=== PATIENT | female | born 1955 | race Caucasian/White ===

== ENCOUNTER 2019-12-19 23:37 | Observation (INO) ==
--- NOTE | 2019-12-20 00:07 | Emergency Department Note ---
History of Present Illness General Chief complaint: Cardiac Assessment Stated complaint: HEART RACING,NAUSEA,PAIN IN RT JAW,FAINT FEELING Time Seen by Provider: 12/19/19 23:46 Source: patient Mode of arrival: ambulatory Limitations: no limitations History of Present Illness Provider complaint: chest pain, palpitations Onset (ago): week(s) Location: chest Radiation: neck Severity: moderate Pain Consistency: + intermittent Quality: + aching Relieved By: + none Exacerbated By: + none Associated symptoms: + chest pain; no fever/chills, no nausea/vomiting, no shortness of breath and no syncope Treatments prior to arrival: none This is a 64-year-old female who presents the emergency department with complaints of intermittent left chest pain over the last 3 weeks as well as palpitations. She states tonight she developed palpitations, accompanying left-sided chest pain that radiated to the left neck and left jaw, felt lightheaded/dizzy, and felt slightly nauseated. Patient denies any common cough or shortness of breath. Patient denies any recent lower extremity edema. Patient states there have been no recent exacerbating or alleviating factors to the intermittent left chest pain and palpitations. Patient denies any recent cough or cold. Patient denies any recent change in her medications or diet. No change in her daily use of caffeine, no recent use of alcohol. Patient denies any known sick contacts. Patient does have a significant family history of heart disease, including her mother who at age 45 from a heart attack. Patient states approximately 7 to 8 years ago she did undergo a cardiac cath, however has not seen cardiology or needed to have any other cardiac testing since then. Pt seen during a time of high acuity and national emergency pandemic while wearing PPE. Home Medications Home Medications Medication Instructions Recorded Confirmed Type aspirin 81 mg PO DAILY 12/20/19 12/20/19 History atorvastatin 20 mg PO DAILY 12/20/19 12/20/19 History cholecalciferol (vitamin D3) 25 mcg PO DAILY 12/20/19 12/20/19 History [Vitamin D3] irbesartan 75 mg PO DAILY 12/20/19 12/20/19 History levothyroxine 75 mcg PO DAILY 12/20/19 12/20/19 History kz-3-jfp-epa-fish oil-vit D3 [Fish 1 cap PO DAILY PRN 10/25/20 10/25/20 History Oil-Vit D3] omeprazole 20 mg PO DAILY 12/20/19 12/20/19 History Allergies Allergy/AdvReac Type Severity Reaction Status Date / Time isopropamide Allergy Intermediate SWELLING Verified 12/20/19 00:33 prochlorperazine Allergy Intermediate SWELLING Verified 12/20/19 00:33 POP Inhibitors AdvReac Intermediate COUGH Verified 12/20/19 00:33 Past Med/Surg History Medical History Hypertension Thyroid dysfunction Social History Smoking Status: Never smoker Hx Alcohol Use: Yes Alcohol type: wine Hx Substance Use: No Preferred Language: Albanian Communication Ability: Effective 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 and A total of 10 systems reviewed and were otherwise negative Physical Exam Vital Signs Vital Signs - 24 hr 12/20/19 01:00 12/20/19 01:30 12/20/19 02:00 Temperature Temperature Source Pulse Rate 85 81 90 Pulse Rate [Right Finger] Pulse Rhythm [Right Finger] Pulse Strength [Right Finger] Respiratory Rate 16 16 16 Respiratory Effort / Characteristics Respiratory Depth Respiratory Pattern Blood Pressure 158/93 H 136/86 139/83 Blood Pressure [Left Arm] Blood Pressure Mean 103 106 94 Blood Pressure Mean [Left Arm] Blood Pressure Position [Left Arm] Pulse Oximetry 98 96 98 Oxygen Delivery Method 12/20/19 02:45 12/20/19 02:48 12/20/19 07:11 Temperature 36.8 C Temperature Source Oral Pulse Rate 92 H 69 Pulse Rate [Right Finger] 82 Pulse Rhythm [Right Finger] Regular Pulse Strength [Right Finger] Normal Respiratory Rate 16 Respiratory Effort / Characteristics Non-Labored Respiratory Depth Normal Respiratory Pattern Regular Blood Pressure Blood Pressure [Left Arm] 152/83 H Blood Pressure Mean Blood Pressure Mean [Left Arm] 106 Blood Pressure Position [Left Arm] Sitting Pulse Oximetry 100 Oxygen Delivery Method Room Air 12/20/19 08:00 12/20/19 08:23 12/20/19 11:51 Temperature 36.9 C 37.0 C Temperature Source Oral Oral Pulse Rate Pulse Rate [Right Finger] 66 72 Pulse Rhythm [Right Finger] Pulse Strength [Right Finger] Respiratory Rate 18 18 Respiratory Effort / Characteristics Non-Labored Respiratory Depth Normal Respiratory Pattern Regular Blood Pressure Blood Pressure [Left Arm] 148/61 H 105/63 Blood Pressure Mean Blood Pressure Mean [Left Arm] 90 77 Blood Pressure Position [Left Arm] Pulse Oximetry 96 99 Oxygen Delivery Method Room Air GENERAL: alert, well appearing, well nourished, no distress, non-toxic EYE EXAM: normal conjunctiva, PERRL and EOM's grossly intact OROPHARYNX: no exudate, no erythema, lips, buccal mucosa, and tongue normal and mucous membranes are moist NECK: supple, no nuchal rigidity, no adenopathy, non-tender, no reproducible pain along the left neck or left jaw, no bruit LUNGS: Clear to auscultation. Normal chest wall mechanics, no w/r/r HEART: no murmurs, S1 normal and S2 normal, no reproducible chest wall tenderness ABDOMEN: abdomen soft, non-tender, normo-active bowel sounds, no masses, no rebound or guarding. BACK: Back is symmetrical on inspection and there is no deformity, no midline tenderness, no CVA tenderness. SKIN: no rashes and no bruising UPPER EXTREMITIES: upper extremities are grossly normal. FROM, nml pulses b/l. LOWER EXTREMITIES: No pitting edema. FROM, nml pulses b/l. NEURO EXAM: Normal sensorium, cranial nerves II-XII grossly intact, normal spe ech, no gross weakness of arms, no gross weakness of legs. Gross sensation intact. Course Course 0102: Patient updated on results. States pain is almost completely resolved now with application of Nitropaste. 0135: Dr. Myres will evaluate the patient. Administered Medications Acetaminophen (Acetaminophen 325 Mg Tab) 650 mg PO Q4H PRN PRN Reason: Pain or Fever Stop: 01/19/20 02:46 Last Admin: 12/20/19 21:32 Dose: 650 mg Documented by: [id number] Aspirin (Aspirin 81 Mg Ectab) 81 mg PO DAILY [facility] Stop: 01/19/20 08:59 Last Admin: 12/20/19 08:22 Dose: 81 mg Documented by: [id number] Atorvastatin Calcium (Atorvastatin 20 Mg Tab) 20 mg PO DAILY [facility] Stop: 01/19/20 08:59 Last Admin: 12/20/19 08:23 Dose: 20 mg Documented by: [id number] Enoxaparin Sodium (Enoxaparin Inj 40 Mg/0.4 Ml Syr) 40 mg SQ QAM [facility]ANN[facility] Stop: 01/19/20 08:59 Last Admin: 12/20/19 08:30 Dose: 40 mg Documented by: [id number] Levothyroxine Sodium (Levothyroxine Sodium 75 Mcg Tablet) 75 mcg PO DAILYBB SHANNEN Stop: 01/19/20 06:29 Last Admin: 12/20/19 05:52 Dose: 75 mcg Documented by: [id number] Metoprolol Succinate (Metoprolol Succ 25mg Ext Rel Tab) 12.5 mg PO QAM SHANNEN Stop: 01/19/20 10:59 Last Admin: 12/20/19 11:49 Dose: 12.5 mg Documented by: [id number] Pantoprazole Sodium (Pantoprazole 40 Mg Tab) 40 mg PO DAILY [facility] Stop: 01/19/20 08:59 Last Admin: 12/20/19 08:22 Dose: 40 mg Documented by: [id number] Vitamin D (Cholecalciferol 1,000 Units 25 Mcg Tab) 1,000 units PO DAILY [facility] Stop: 01/19/20 08:59 Last Admin: 12/20/19 08:22 Dose: 1,000 units Documented by: [id number] Discontinued Medications Magnesium Sulfate/Dextrose (Magnesium Sulfate / D5w) 1 gm in 100 mls @ 50 mls/hr IV ONE ONE Stop: 12/20/19 04:46 Last Infusion: 12/20/19 05:51 Dose: 0 mls/hr Documented by: [id number] Admin: 12/20/19 03:44 Dose: 50 mls/hr Documented by: [id number] Potassium Chloride 40 meq/ (Sodium Chloride) 1,020 mls @ 50 mls/hr IV .[id number] ONE Stop: 12/20/19 23:10 Last Infusion: 12/20/19 23:41 Dose: 0 mls/hr Documented by: [id number] Admin: 12/20/19 03:43 Dose: 50 mls/hr Documented by: [id number] Ioversol (Optiray 320 125ml) 120 ml IV ONCE ONE Stop: 12/20/19 02:39 Last Admin: 12/20/19 02:38 Dose: 120 ml Documented by: [id number] Irbesartan (Irbesartan 75 Mg Tab) 75 mg PO NOW STA Stop: 12/20/19 01:08 Last Admin: 12/20/19 01:40 Dose: 75 mg Documented by: [id number] Nitroglycerin (Nitroglycerin 2% Ointment 30gm Tube) 1 inch EXT NOW STA Stop: 12/20/19 00:22 Last Admin: 12/20/19 00:32 Dose: 1 inch Documented by: [id number] Potassium Chloride (Potassium Chloride 20 Meq Tabcr) 40 meq PO NOW STA Stop: 12/20/19 02:48 Last Admin: 12/20/19 03:44 Dose: 40 meq Documented by: [id number] Medical Decision Making Differential Diagnosis Differential diagnoses includes but is not limited to acute coronary syndrome, myocardial infarction, pericarditis, pulmonary embolus, aortic dissection, pneumonia, pneumothorax, musculoskeletal, shingles, esophageal. Medical Records Attestation: I reviewed the patient's medical records. Home Medications Current Medication List: was personally reviewed by me Laboratory Data Attestation: I reviewed the patient's lab results. Result diagrams: 12/20/19 05:24 12/20/19 05:24 Lab Results 12/19/19 12/19/19 12/19/19 Range/Units 23:50 23:50 23:50 WBC 7.38 (4.8-10.8) K/uL RBC 3.99 L (4.2-5.4) M/uL Hgb 12.2 (12.0-16.0) g/dL Hct 36.7 L (37-47) % MCV 92.0 (80-100) fL MCH 30.6 (25-34) pg MCHC 33.2 (32-36) g/dL RDW Std Deviation 44.1 (36.4-46.3) fL RDW Coeff of Mariela 13.1 (11.5-14.5) % Plt Count 287 (130-400) K/uL MPV 9.8 (7.4-10.4) fL Immature Gran % (Auto) 0.1 % Neut % (Auto) 42.6 % Lymph % (Auto) 45.8 % [place] % (Auto) 8.9 % Eos % (Auto) 2.3 % Baso % (Auto) 0.3 % Neut # (Auto) 3.14 (1.4-6.5) K/uL Lymph # (Auto) 3.38 (1.2-3.4) K/uL [place] # (Auto) 0.66 H (0.11-0.59) K/uL Eos # (Auto) 0.17 (0-0.5) K/uL Baso # (Auto) 0.02 (0-0.2) K/uL Immature Gran # (Auto) 0.01 (0.00-0.02) K/uL PT 10.3 (9.0-12.0) Seconds INR 1.0 (0.9-1.1) APTT (21.0-31.0) Seconds PTT Ratio D-Dimer 340 (0-500) ug/L FEU Sodium 137 (136-145) mmol/L Potassium 3.5 (3.5-5.1) mmol/L Chloride 102 (98-107) mmol/L Carbon Dioxide 30 (21-32) mmol/L Anion Gap 5.0 (3-11) BUN 16 (7-18) mg/dl Creatinine 0.95 (0.6-1.2) mg/dl Est Cr Clr Drug Dosing 56.1 ml/min Est GFR ( Amer) 72.3 Est GFR (Non-Af Amer) 62.4 BUN/Creatinine Ratio 17.0 (10-20) Glucose 99 (70-99) mg/dl Calcium 9.0 (8.5-10.1) mg/dl Magnesium 1.8 (1.8-2.4) mg/dl Total Bilirubin 0.4 (0.2-1) mg/dl AST 15 (15-37) U/L ALT 28 (12-78) U/L Alkaline Phosphatase 76 (45-117) U/L Troponin I < 0.015 (0-0.045) ng/ml NT-Pro-B Natriuret Pep 39 (0-900) pg/ml Total Protein 7.6 (6.4-8.2) gm/dl Albumin 4.2 (3.4-5.0) gm/dl Globulin 3.4 (2.5-4.0) gm/dl Albumin/Globulin Ratio 1.2 (0.9-2) Triglycerides (0-150) mg/dl Cholesterol (0-200) mg/dl LDL Cholesterol, Calc mg/dl VLDL Cholesterol, Calc mg/dl HDL Cholesterol mg/dl Cholesterol/HDL Ratio Lipase 226 (73-393) U/L TSH 3.060 (0.300-4.500) uIu/ml Lyme Disease IgG Ab (Negative) Lyme Disease IgM Ab (Negative) 12/19/19 12/20/19 12/20/19 Range/Units 23:50 05:24 05:24 WBC 6.46 (4.8-10.8) K/uL RBC 3.77 L (4.2-5.4) M/uL Hgb 11.4 L (12.0-16.0) g/dL Hct 35.1 L (37-47) % MCV 93.1 (80-100) fL MCH 30.2 (25-34) pg MCHC 32.5 (32-36) g/dL RDW Std Deviation 44.5 (36.4-46.3) fL RDW Coeff of Mariela 13.1 (11.5-14.5) % Plt Count 262 (130-400) K/uL MPV 10.0 (7.4-10.4) fL Immature Gran % (Auto) 0.2 % Neut % (Auto) 59.3 % Lymph % (Auto) 32.0 % [place] % (Auto) 7.0 % Eos % (Auto) 1.2 % Baso % (Auto) 0.3 % Neut # (Auto) 3.83 (1.4-6.5) K/uL Lymph # (Auto) 2.07 (1.2-3.4) K/uL [place] # (Auto) 0.45 (0.11-0.59) K/uL Eos # (Auto) 0.08 (0-0.5) K/uL Baso # (Auto) 0.02 (0-0.2) K/uL Immature Gran # (Auto) 0.01 (0.00-0.02) K/uL PT (9.0-12.0) Seconds INR (0.9-1.1) APTT 31.7 H (21.0-31.0) Seconds PTT Ratio 1.1 D-Dimer (0-500) ug/L FEU Sodium (136-145) mmol/L Potassium (3.5-5.1) mmol/L Chloride (98-107) mmol/L Carbon Dioxide (21-32) mmol/L Anion Gap (3-11) BUN (7-18) mg/dl Creatinine (0.6-1.2) mg/dl Est Cr Clr Drug Dosing ml/min Est GFR ( Amer) Est GFR (Non-Af Amer) BUN/Creatinine Ratio (10-20) Glucose (70-99) mg/dl Calcium (8.5-10.1) mg/dl Magnesium (1.8-2.4) mg/dl Total Bilirubin (0.2-1) mg/dl AST (15-37) U/L ALT (12-78) U/L Alkaline Phosphatase (45-117) U/L Troponin I (0-0.045) ng/ml NT-Pro-B Natriuret Pep (0-900) pg/ml Total Protein (6.4-8.2) gm/dl Albumin (3.4-5.0) gm/dl Globulin (2.5-4.0) gm/dl Albumin/Globulin Ratio (0.9-2) Triglycerides (0-150) mg/dl Cholesterol (0-200) mg/dl LDL Cholesterol, Calc mg/dl VLDL Cholesterol, Calc mg/dl HDL Cholesterol mg/dl Cholesterol/HDL Ratio Lipase (73-393) U/L TSH (0.300-4.500) uIu/ml Lyme Disease IgG Ab Negative (Negative) Lyme Disease IgM Ab Negative (Negative) 12/20/19 Range/Units 05:24 WBC (4.8-10.8) K/uL RBC (4.2-5.4) M/uL Hgb (12.0-16.0) g/dL Hct (37-47) % MCV (80-100) fL MCH (25-34) pg MCHC (32-36) g/dL RDW Std Deviation (36.4-46.3) fL RDW Coeff of Mariela (11.5-14.5) % Plt Count (130-400) K/uL MPV (7.4-10.4) fL Immature Gran % (Auto) % Neut % (Auto) % Lymph % (Auto) % [place] % (Auto) % Eos % (Auto) % Baso % (Auto) % Neut # (Auto) (1.4-6.5) K/uL Lymph # (Auto) (1.2-3.4) K/uL [place] # (Auto) (0.11-0.59) K/uL Eos # (Auto) (0-0.5) K/uL Baso # (Auto) (0-0.2) K/uL Immature Gran # (Auto) (0.00-0.02) K/uL PT (9.0-12.0) Seconds INR (0.9-1.1) APTT (21.0-31.0) Seconds PTT Ratio D-Dimer (0-500) ug/L FEU Sodium 136 (136-145) mmol/L Potassium 3.8 (3.5-5.1) mmol/L Chloride 104 (98-107) mmol/L Carbon Dioxide 29 (21-32) mmol/L Anion Gap 3.0 (3-11) BUN 14 (7-18) mg/dl Creatinine 0.82 (0.6-1.2) mg/dl Est Cr Clr Drug Dosing 68.2 ml/min Est GFR ( Amer) 86.4 Est GFR (Non-Af Amer) 74.6 BUN/Creatinine Ratio 17.2 (10-20) Glucose 131 H (70-99) mg/dl Calcium 8.7 (8.5-10.1) mg/dl Magnesium (1.8-2.4) mg/dl Total Bilirubin (0.2-1) mg/dl AST (15-37) U/L ALT (12-78) U/L Alkaline Phosphatase (45-117) U/L Troponin I < 0.015 (0-0.045) ng/ml NT-Pro-B Natriuret Pep (0-900) pg/ml Total Protein (6.4-8.2) gm/dl Albumin (3.4-5.0) gm/dl Globulin (2.5-4.0) gm/dl Albumin/Globulin Ratio (0.9-2) Triglycerides 146 (0-150) mg/dl Cholesterol 177 (0-200) mg/dl LDL Cholesterol, Calc 96 mg/dl VLDL Cholesterol, Calc 29 mg/dl HDL Cholesterol 52 mg/dl Cholesterol/HDL Ratio 3 Lipase (73-393) U/L TSH (0.300-4.500) uIu/ml Lyme Disease IgG Ab (Negative) Lyme Disease IgM Ab (Negative) Imaging Data My Impression: X-ray: I interpreted the following studies. Chest: A single view study of the chest was reviewed and was negative for cardiomegaly, focal infiltrate, effusion, pulmonary edema, or wide mediastinum. ECG Data Attestation: I personally reviewed and interpreted this ECG as follows: Indication: + chest pain and + palpitations Rate (beats per minute): 100 Rhythm: + sinus tachycardia ECG Intervals/blocks: + Normal QRS and + Normal QT ECG [place]: + Normal ECG ST segments: + Normal ST segments Blood Pressure Blood Pressure Findings: Elevated blood pressure Blood Pressure Disposition: further management by hospitalist VERA Narrative Heart score 5 This is a 64-year-old female who presents here with a concerning story for evolving intermittent chest pain that now today included not only chest pain but pain into the neck and jaw. Patient with extensive and young onset family history of coronary artery disease including sudden in her mom at age 45 as well as siblings and other family members who have had young onset CAD but have since survived. Patient denied any recent change in diet or activity, no recent illness. Labs are drawn and sent as a precaution and were reassuring. EKG did not show any acutely concerning changes. Patient remained hemodynamically stable throughout. Patient did take her usual baby aspirin this morning, Nitropaste was applied here and patient did have improvement in her symptoms. D-dimer was negative, chest x-ray otherwise unremarkable. Heart scor e is elevated and because of this as well as concern for evolving angina, case discussed with hospitalist for additional evaluation and monitoring. Patient's blood pressure was markedly elevated initially, did improved after the Nitropaste, patient reports that is much higher than she typically states. It is unclear if there could be a component of hypertensive urgency. Symptoms not consistent based on patient's description and prior history of GERD or anxiety. I do not suspect dissection, cardiac tamponade, mediastinitis, perforation, GI bleed. No ectopy or dysrhythmia noted on telemetry despite patient's report of a sensitive racing/pounding of her heart. Patient did initially have sinus tachycardia although this improved spontaneously. An order was placed for continuous cardiac monitoring. The monitor shows a rate of _78 with _normal sinus rhythm. Impression & Plan Atypical chest pain, Hypertension, Stable angina, Intermittent palpitations Discharge Plan Visit Data Chief Complaint: Cardiac Assessment Stated Complaint: HEART RACING,NAUSEA,PAIN IN RT JAW,FAINT FEELING ED Provider: Chantale Sutton Discharge Problem: Atypical chest pain, Hypertension, Stable angina, Intermittent palpitations Patient Disposition: Admitted As Inpatient Discharge Instructions Interventions: ED Discharge Assessment Last Done: 12/20/19 02:16 Discharge Problem: Hypertension Qualifiers: Hypertension type: essential hypertension Qualified Code(s): I10 - Essential (primary) hypertension
[2019-12-20] MEDS ORDERED: NITROGLYCERIN 2% OINTMENT 30GM TUBE EXT STA (00:21)
[2019-12-20 00:33] LABS: Basophils # (auto) 0.02 K/uL (0-0.2); Basophils % (auto) 0.3 %; Eosinophils # (auto) 0.17 K/uL (0-0.5); Eosinophils % (auto) 2.3 %; Hematocrit (blood only) 36.7 % (37-47); Hemoglobin 12.2 g/dL (12.0-16.0); Immature Granulocytes # (auto) 0.01 K/uL (0.00-0.02); Immature Granulocytes % (auto) 0.1 %; Lymphocytes # (auto) 3.38 K/uL (1.2-3.4); Lymphocytes % (auto) 45.8 %; Mean Corpuscular Hemoglobin 30.6 pg (25-34); Mean Corpuscular Hgb Conc 33.2 g/dL (32-36); Mean Platelet Volume 9.8 fL (7.4-10.4); Monocytes # (auto) 0.66 K/uL (0.11-0.59); Monocytes % (auto) 8.9 %; Neutrophils # (auto) 3.14 K/uL (1.4-6.5); Neutrophils % (auto) 42.6 %; Platelet Count 287 K/uL (130-400); RDW Coefficient of Variation 13.1 % (11.5-14.5); RDW Standard Deviation 44.1 fL (36.4-46.3); Red Blood Count 3.99 M/uL (4.2-5.4); White Blood Count 7.38 K/uL (4.8-10.8)
[2019-12-20 00:41] LABS: Alanine Aminotransferase 28 U/L (12-78); Albumin Level 4.2 gm/dl (3.4-5.0); Aspartate Aminotransferase 15 U/L (15-37); Blood Urea Nitrogen 16 mg/dl (7-18); Carbon Dioxide 30 mmol/L (21-32); Chloride 102 mmol/L (98-107); Creatinine Clr Calc Pharmacy 56.1 ml/min; D Dimer 340 ug/L FEU (0-500); Est GFR (African American) 72.3; Est GFR (Non-African American) 62.4; Glucose 99 mg/dl (70-99); Lipase 226 U/L (73-393); Magnesium 1.8 mg/dl (1.8-2.4); Potassium 3.5 mmol/L (3.5-5.1); Prothrombin Time 10.3 Seconds (9.0-12.0); Sodium 137 mmol/L (136-145)
[2019-12-20 00:52] LABS: Albumin Globulin Ratio 1.2 (0.9-2); Alkaline Phosphatase 76 U/L (45-117); Bilirubin,Total 0.4 mg/dl (0.2-1); Globulin 3.4 gm/dl (2.5-4.0); NT Pro B Type Natriuretic Pept 39 pg/ml (0-900); Total Protein 7.6 gm/dl (6.4-8.2); Troponin I < 0.015 ng/ml (0-0.045)
[2019-12-20] MEDS ORDERED: IRBESARTAN 75 MG TAB PO STA (01:07)
[2019-12-20 01:19] LABS: Lyme Ab IgG w/WB Rflx Negative (Negative); Lyme Ab IgM w/WB Rflx Negative (Negative)
--- NOTE | 2019-12-20 01:38 | History & Physical Report ---
Date of Service December 20, 2019 Assessment & Plan (1) Chest pain: Associated with palpitations possibly from uncontrolled hypertension hyperlipidemia on statin Rx GERD, stable hypothyroidism, euthyroid as of today's TSH Malignant melanoma status post surgery OBS PCU Facilitate home ARB and titrate as needed TTE, Cardiology consult RE chest pain, uncontrolled hypertension DVT prophylaxis. Lovenox subcu Full code Text document was generated using [employer] voice recognition software. It may contain grammatical or spelling errors. Kindly contact undersigned for clarification of any documentation item in question. History of Present Illness Chief Complaint: Left-sided chest tightness, palpitations Primary Care Provider: Kitty Cano MD History obtained from patient, family, and records. Medical history significant for hypertension, hyperlipidemia, GERD, hypothyroidism, skin cancer status post surgery. 3 weeks ago patient noted transient left-sided upper chest tightness with some radiation to the neck with no other symptoms. Occurring about weekly. No consultations done. About 2 days ago patient noted recurrence of left upper chest tightness symptoms with neck radiation going to the left ear associated with palpitations, nausea, dizziness without headache, fast heartbeat. No cough, no S OB. No unusual stress at home other than caring for who was hospitalized a few months back for heart issues. Patient suspected her blood pressure might be high. Discomfort relief with ibuprofen intake. Patient brought to the ER by . Medical History as above Surgical History : Eye injections, oophorectomy, cataract surgery, skin cancer s urgery Family History : Diabetes, heart disease, hypertension Personal/Social history : Non-smoker, occasional EtOH intake, retired schoolteacher Allergies Allergy/AdvReac Type Severity Reaction Status Date / Time isopropamide Allergy Intermediate SWELLING Verified 12/20/19 00:33 prochlorperazine Allergy Intermediate SWELLING Verified 12/20/19 00:33 POP Inhibitors AdvReac Intermediate COUGH Verified 12/20/19 00:33 Home Medications Home Medications Medication Instructions Recorded Confirmed Type aspirin 81 mg PO DAILY 12/20/19 12/20/19 History atorvastatin 20 mg PO DAILY 12/20/19 12/20/19 History cholecalciferol (vitamin D3) 25 mcg PO DAILY 12/20/19 12/20/19 History [Vitamin D3] irbesartan 75 mg PO DAILY 12/20/19 12/20/19 History levothyroxine 75 mcg PO DAILY 12/20/19 12/20/19 History nu-0-rrf-epa-fish oil-vit D3 [Fish 1 cap PO DAILY PRN 12/20/19 12/20/19 History Oil-Vit D3] omeprazole 20 mg PO DAILY 12/20/19 12/20/19 History Past Med/Surg History Medical History Hypertension Thyroid dysfunction Social History Smoking Status: Never smoker Hx Alcohol Use: Yes Alcohol type: wine Hx Substance Use: No Preferred Language: Lithuanian Communication Ability: Effective Nursing Care Attendant Required: No Beliefs That Will Affect Care: None Current Living Situation: Spouse Other Information That Helps Us Care for You: No Feels Safe at Home: Yes Safety Concerns: Feels Safe At This Time Assistive Devices: Glasses Review of Systems Review of Systems: As per HPI, all 10 systems reviewed, all other ROS negative Physical Exam Physical Exam: GENERAL: Comfortable, pleasant, looks younger for stated age, no respiratory distress SKIN: Normal color, warm HEENT: [place] palpebral conjunctivae, no ptosis, dry buccal mucosa NECK : Supple, no tenderness CHEST : CTA, no tenderness HEART : RRR, no obvious murmurs ABDOMEN: Some distention, nontender EXTREMITIES : No LE swelling/tenderness, no other conspicuous deformities noted NEUROLOGIC : Coherent, no facial asymmetry, no other gross focality Results & Data Results & Data ([facility]) Vital Signs (Past 12 Hours) Vital Signs Temp Pulse BP Pulse Ox 12/19/19 23:45 36.7 C 98 H 185/92 H 100 Laboratory Results Laboratory Results WBC 7.38 K/uL (4.8-10.8) 12/19/19 23:50 RBC 3.99 M/uL (4.2-5.4) L 12/19/19 23:50 Hgb 12.2 g/dL (12.0-16.0) 12/19/19 23:50 Hct 36.7 % (37-47) L 12/19/19 23:50 MCV 92.0 fL (80-100) 12/19/19 23:50 MCH 30.6 pg (25-34) 12/19/19 23:50 MCHC 33.2 g/dL (32-36) 12/19/19 23:50 RDW Std Deviation 44.1 fL (36.4-46.3) 12/19/19 23:50 RDW Coeff of Mariela 13.1 % (11.5-14.5) 12/19/19 23:50 Plt Count 287 K/uL (130-400) 12/19/19 23:50 MPV 9.8 fL (7.4-10.4) 12/19/19 23:50 Immature Gran % (Auto) 0.1 % 12/19/19 23:50 Neut % (Auto) 42.6 % 12/19/19 23:50 Lymph % (Auto) 45.8 % 12/19/19 23:50 [place] % (Auto) 8.9 % 12/19/19 23:50 Eos % (Auto) 2.3 % 12/19/19 23:50 Baso % (Auto) 0.3 % 12/19/19 23:50 Neut # (Auto) 3.14 K/uL (1.4-6.5) 12/19/19 23:50 Lymph # (Auto) 3.38 K/uL (1.2-3.4) 12/19/19 23:50 [place] # (Auto) 0.66 K/uL (0.11-0.59) H 12/19/19 23:50 Eos # (Auto) 0.17 K/uL (0-0.5) 12/19/19 23:50 Baso # (Auto) 0.02 K/uL (0-0.2) 12/19/19 23:50 Immature Gran # (Auto) 0.01 K/uL (0.00-0.02) 12/19/19 23:50 PT 10.3 Seconds (9.0-12.0) 12/19/19 23:50 INR 1.0 (0.9-1.1) 12/19/19 23:50 D-Dimer 340 ug/L FEU (0-500) 12/19/19 23:50 Sodium 137 mmol/L (136-145) 12/19/19 23:50 Potassium 3.5 mmol/L (3.5-5.1) 12/19/19 23:50 Chloride 102 mmol/L (98-107) 12/19/19 23:50 Carbon Dioxide 30 mmol/L (21-32) 12/19/19 23:50 Anion Gap 5.0 (3-11) 12/19/19 23:50 BUN 16 mg/dl (7-18) 12/19/19 23:50 Creatinine 0.95 mg/dl (0.6-1.2) 12/19/19 23:50 Est Cr Clr Drug Dosing 56.1 ml/min 12/19/19 23:50 Est GFR ( Amer) 72.3 12/19/19 23:50 Est GFR (Non-Af Amer) 62.4 12/19/19 23:50 BUN/Creatinine Ratio 17.0 (-20) 12/19/19 23:50 Glucose 99 mg/dl (70-99) 12/19/19 23:50 Calcium 9.0 mg/dl (8.5-10.1) 12/19/19 23:50 Magnesium 1.8 mg/dl (1.8-2.4) 12/19/19 23:50 Total Bilirubin 0.4 mg/dl (0.2-1) 12/19/19 23:50 AST 15 U/L (15-37) 12/19/19 23:50 ALT 28 U/L (12-78) 12/19/19 23:50 Alkaline Phosphatase 76 U/L (45-117) 12/19/19 23:50 Troponin I < 0.015 ng/ml (0-0.045) 12/19/19 23:50 NT-Pro-B Natriuret Pep 39 pg/ml (0-900) 12/19/19 23:50 Total Protein 7.6 gm/dl (6.4-8.2) 12/19/19 23:50 Albumin 4.2 gm/dl (3.4-5.0) 12/19/19 23:50 Globulin 3.4 gm/dl (2.5-4.0) 12/19/19 23:50 Albumin/Globulin Ratio 1.2 (0.9-2) 12/19/19 23:50 Lipase 226 U/L (73-393) 12/19/19 23:50 TSH 3.060 uIu/ml (0.300-4.500) 12/19/19 23:50 Lyme Disease IgG Ab Negative (Negative) 12/19/19 23:50 Lyme Disease IgM Ab Negative (Negative) 12/19/19 23:50 Diagnostic Findings Chest x-ray as per my interpretation atelectasis, thin heart EKG as per my interpretation : Rate 100, NSR, LAD, LAFB, no ischemia, LAE CTA neck initial read: No evidence of high-grade stenosis or occlusion. Small right thyroid nodule.
[2019-12-20] MEDS ORDERED: OPTIRAY 320 125ml IV ONE (02:38)
[2019-12-20] MEDS ORDERED: NITROGLYCERIN SL 0.4 MG/TAB TAB SL PRN (02:47)
[2019-12-20] MEDS ORDERED: METOCLOPRAMIDE HCL INJ 5 MG/ML 2 ML VIAL IV PRN (02:47)
[2019-12-20] MEDS ORDERED: MoRPHine SULFATE 2 MG/ML CARP IV PRN (02:47)
[2019-12-20] MEDS ORDERED: MAGNESIUM SULFATE / D5W 1 GM/100 ML BAG IV ONE (02:47)
[2019-12-20] MEDS ORDERED: POTASSIUM CHLORIDE 40 MEQ in SODIUM CHLORIDE 0.9% 1000ML 1,000 ML IV ONE (02:47)
[2019-12-20] MEDS ORDERED: POTASSIUM CHLORIDE CRTAB 20 MEQ TABCR PO STA (02:47)
[2019-12-20] MEDS ORDERED: LORazepam 0.25 MG/0.5 ML VIAL IV PRN (02:47)
[2019-12-20] MEDS ORDERED: traMADol HCL 50 MG TABLET PO PRN (02:47)
[2019-12-20] MEDS: LEVOTHYROXINE SODIUM 75 MCG TABLET PO SCH (05:52)
[2019-12-20 06:14] LABS: Basophils # (auto) 0.02 K/uL (0-0.2); Basophils % (auto) 0.3 %; Eosinophils # (auto) 0.08 K/uL (0-0.5); Eosinophils % (auto) 1.2 %; Hematocrit (blood only) 35.1 % (37-47); Hemoglobin 11.4 g/dL (12.0-16.0); Immature Granulocytes # (auto) 0.01 K/uL (0.00-0.02); Immature Granulocytes % (auto) 0.2 %; Lymphocytes # (auto) 2.07 K/uL (1.2-3.4); Mean Corpuscular Hemoglobin 30.2 pg (25-34); Mean Corpuscular Hgb Conc 32.5 g/dL (32-36); Mean Corpuscular Volume 93.1 fL (80-100); Monocytes # (auto) 0.45 K/uL (0.11-0.59); Neutrophils # (auto) 3.83 K/uL (1.4-6.5); Neutrophils % (auto) 59.3 %; Platelet Count 262 K/uL (130-400); RDW Coefficient of Variation 13.1 % (11.5-14.5); RDW Standard Deviation 44.5 fL (36.4-46.3); Red Blood Count 3.77 M/uL (4.2-5.4); White Blood Count 6.46 K/uL (4.8-10.8)
[2019-12-20 06:34] LABS: Partial Thromboplastin Ratio 1.1; Partial Thromboplastin Time 31.7 Seconds (21.0-31.0)
[2019-12-20 06:48] LABS: BUN Creatinine Ratio 17.2 (10-20); Blood Urea Nitrogen 14 mg/dl (7-18); Calcium 8.7 mg/dl (8.5-10.1); Carbon Dioxide 29 mmol/L (21-32); Chloride 104 mmol/L (98-107); Cholesterol 177 mg/dl (0-200); Creatinine Clr Calc Pharmacy 68.2 ml/min; Est GFR (African American) 86.4; Est GFR (Non-African American) 74.6; Glucose 131 mg/dl (70-99); Potassium 3.8 mmol/L (3.5-5.1); Sodium 136 mmol/L (136-145); Triglycerides 146 mg/dl (0-150); VLDL Cholesterol 29 mg/dl
[2019-12-20 06:53] LABS: Chol HDL Ratio 3; HDL Cholesterol 52 mg/dl; LDL Cholesterol Calculated 96 mg/dl; Troponin I < 0.015 ng/ml (0-0.045)
[2019-12-20] MEDS: ASPIRIN 81 MG ECTAB PO SCH (08:22)
[2019-12-20] MEDS: PANTOprazole 40 MG TAB PO SCH (08:22)
[2019-12-20] MEDS: CHOLECALCIFEROL 1,000 UNITS 25 MCG TAB PO SCH (08:22)
[2019-12-20] MEDS: ATORVASTATIN 20 MG TAB PO SCH (08:23)
[2019-12-20] MEDS: ENOXAPARIN INJ 40 MG/0.4 ML SYR SQ SCH (08:30)
--- NOTE | 2019-12-20 09:24 | CT Scan Report ---
CT ANGIOGRAPHY OF THE NECK WITH CONTRAST CLINICAL HISTORY: Left-sided neck pain. COMPARISON STUDY: No previous studies for comparison. Technique: CT angiography of the carotid and vertebral arteries was obtained using Film Fresh 320 IV and 3D reconstruction on an independent workstation. NASCET criteria was utilized. Automated exposure c ontrol was utilized for the study. A dose lowering technique was utilized adhering to the principles of ALARA. CT DOSE: 531.40 mGy.cm Findings: Lung apices are clear. There is no cervical lymphadenopathy. No cervical spine fracture is noted. There is mild to moderate multilevel degenerative disc disease within the cervical spine. The bilateral common carotid, cervical internal carotid and vertebral arteries are patent. No dissection within the major vessels of the neck. There is mild plaque within the proximal right internal carotid artery without stenosis. Left vertebral artery is dominant. There is no aneurysm within the neck. No intraluminal thrombus is noted. IMPRESSION: No dissection or stenosis within the major vessels of the neck. ACT 112: Negative or not required by law. Electronically signed by: Rishi Villarreal M.D. 12/20/2019 9:23 AM
--- NOTE | 2019-12-20 10:04 | XRay Report ---
XR chest 1V portable CLINICAL HISTORY: Atypical chest pain. COMPARISON STUDY: No previous studies for comparison. FINDINGS: Lung volumes are normal. Lungs are clear. There is no pneumothorax or pleural effusion. Car diac size is normal. Mediastinal contours are normal. There is no evidence for pulmonary edema. IMPRESSION: No acute cardiopulmonary findings. ACT 112: Negative or not required by law. Electronically signed by: Rishi Villarreal M.D. 12/20/2019 10:03 AM
--- NOTE | 2019-12-20 10:45 | Cardiology Consultation ---
Date of Consultation December 20, 2019 Assessment & Plan (1) Intermittent palpitations: Patient is a 64-year-old female history of hypertension, hyperlipidemia and strong family history of premature coronary disease who is been experiencing symptoms of tachypalpitations and chest pressure for approximately 3 weeks. On presentation patient mild elevated heart rate and elevated blood pressures but no acute ischemia by EKG and enzyme to date. Plan: Agree with increased Avapro 75 mg/day (previously taking 1/2/day) Add low-dose beta-efren with room to increase with Toprol-XL 12.5 mg p.o. daily Stress echocardiogram in a.m. unless change in EKG or enzymes We will follow in hospital (2) Chest pain: (3) Hypertension: As above (4) Hyperlipidemia: (5) Family history of premature coronary artery disease: History of Present Illness Reason for Consultation: Chest pressure ,palpitation Requesting Physician: Dr. Hess Attending Physician: Dilip Hess MD History of Present Illness Patient is a 64-year-old female who is underlying notable issues include 1. Longstanding hypertension 2. Hyperlipidemia on therapy 3. Strong familial history of premature coronary disease 4. Hypothyroidism on replacement 5. Cardiac catheterization/coronary angiography September 2010 mild nonobstructive coronary atherosclerosis, left anterior descending 30% proximal, 20% mid vessel Patient presents now noting approximately 3-week history of intermittent tachypalpitations heart pounding harder with associated intermittent chest pressure. Does note some stress in caring for her and an increased demands of activities at home. Generally active however with good tolerance for the most part. Symptoms currently new and worsening resulting in ER presentation. On initial evaluation patient mildly tachycardic and hypertensive. There are no acute EKG changes suggest ischemia initial troponins are negative x2. She denies recent fevers chills unexplained infections. Notes no history of TIA or stroke. Notes no orthopnea PND or peripheral edema. Has intentionally lost approximately 30 pounds over the last years time to dietary intervention and activity. Notes medicationsAvapro were actually reduced approximately 1 year ago due to good control blood pressure. No bleeding issues melena medication dysuria hematuria. No rash arthritic complaint No prior history rheumatic fever scarlet fever renal or hepatic disease Blood pressure treated in the emergency room with a.m. dose of Avapro and topical nitrates Allergies Allergy/AdvReac Type Severity Reaction Status Date / Time isopropamide Allergy Intermediate SWELLING Verified 12/20/19 00:33 prochlorperazine Allergy Intermediate SWELLING Verified 12/20/19 00:33 POP Inhibitors AdvReac Intermediate COUGH Verified 12/20/19 00:33 Home Medications Home Medications Medication Instructions Recorded Confirmed Type aspirin 81 mg PO DAILY 12/20/19 12/20/19 History atorvastatin 20 mg PO DAILY 12/20/19 12/20/19 History cholecalciferol (vitamin D3) 25 mcg PO DAILY 12/20/19 12/20/19 History [Vitamin D3] irbesartan 75 mg PO DAILY 12/20/19 12/20/19 History levothyroxine 75 mcg PO DAILY 12/20/19 12/20/19 History [id number]-[id number]-epa-fish oil-vit D3 [Fish 1 cap PO DAILY PRN 12/20/19 12/20/19 History Oil-Vit D3] omeprazole 20 mg PO DAILY 12/20/19 12/20/19 History Patient History Medical History Hypertension Thyroid dysfunction Social History Smoking Status: Never smoker Hx Alcohol Use: Yes Alcohol type: wine Hx Substance Use: No Preferred Language: [place]ian Communication Ability: [employer] Consultant Required: No Beliefs That Will Affect Care: None Current Living Situation: Spouse Other Information That Helps Us Care for You: No Feels Safe at Home: Yes Safety Concerns: Feels Safe At This Time Assistive Devices: Glasses Review of Systems Review of Systems: All systems reviewed & are unremarkable except as noted in HPI & below Physical Exam Constitutional: WD/WN, vitals as above Eyes: PERRL, conjunctivae normal, anicteric sclerae ENMT: external ear and nose normal, oropharynx normal Neck: trachea midline, no thyromegaly Respiratory: normal respiratory effort, lungs clear to auscultation Cardiovascular: Rate/Rhythm: regular rate and regular rhythm Heart Sounds: normal S1 and normal S2; no gallop and no murmur Palpation: normal PMI Vessels: normal carotid upstroke and radial pulses present; no JVD and no carotid bruit Extremities: no edema Gastrointestinal (Abdomen): normal bowel sounds, soft, nontender, no hepatosplenomegaly Musculoskeletal: no cyanosis or clubbing, extremities motor strength 5/5 Skin: no rashes, warm and dry Neurologic: PERRL, EOMI, accommodation nl, no face palsy, no dysarthria Psychiatric: A+Ox3, euthymic affect Results & Data ([facility]) Vital Signs (Past 12 Hours) Vital Signs Temp Pulse Pulse Resp BP BP Pulse Ox 12/20/19 08:23 36.9 C 66 18 148/61 H 96 12/20/19 07:11 69 12/20/19 02:48 36.8 C 82 16 152/83 H 100 12/20/19 02:45 92 H 12/20/19 02:00 90 16 139/83 98 12/20/19 01:30 81 16 136/86 96 12/20/19 01:00 85 16 158/93 H 98 12/20/19 00:30 90 18 144/93 H 99 12/20/19 00:00 94 H 20 167/93 H 100 12/19/19 23:45 36.7 C 98 H 185/92 H 100 Laboratory Results Laboratory Results - last 24 hr 12/19/19 12/19/19 12/19/19 23:50 23:50 23:50 WBC 7.38 RBC 3.99 L Hgb 12.2 Hct 36.7 L MCV 92.0 MCH 30.6 MCHC 33.2 RDW Std Deviation 44.1 RDW Coeff of Mariela 13.1 Plt Count 287 MPV 9.8 Immature Gran % (Auto) 0.1 Neut % (Auto) 42.6 Lymph % (Auto) 45.8 Crowley % (Auto) 8.9 Eos % (Auto) 2.3 Baso % (Auto) 0.3 Neut # (Auto) 3.14 Lymph # (Auto) 3.38 Crowley # (Auto) 0.66 H Eos # (Auto) 0.17 Baso # (Auto) 0.02 Immature Gran # (Auto) 0.01 PT 10.3 INR 1.0 APTT PTT Ratio D-Dimer 340 Sodium 137 Potassium 3.5 Chloride 102 Carbon Dioxide 30 Anion Gap 5.0 BUN 16 Creatinine 0.95 Est Cr Clr Drug Dosing 56.1 Est GFR ( Amer) 72.3 Est GFR (Non-Af Amer) 62.4 BUN/Creatinine Ratio 17.0 Glucose 99 Calcium 9.0 Magnesium 1.8 Total Bilirubin 0.4 AST 15 ALT 28 Alkaline Phosphatase 76 Troponin I < 0.015 NT-Pro-B Natriuret Pep 39 Total Protein 7.6 Albumin 4.2 Globulin 3.4 Albumin/Globulin Ratio 1.2 Triglycerides Cholesterol LDL Cholesterol, Calc VLDL Cholesterol, Calc HDL Cholesterol Cholesterol/HDL Ratio Lipase 226 TSH 3.060 Lyme Disease IgG Ab Lyme Disease IgM Ab 12/19/19 12/20/19 12/20/19 23:50 05:24 05:24 WBC 6.46 RBC 3.77 L Hgb 11.4 L Hct 35.1 L MCV 93.1 MCH 30.2 MCHC 32.5 RDW Std Deviation 44.5 RDW Coeff of Mariela 13.1 Plt Count 262 MPV 10.0 Immature Gran % (Auto) 0.2 Neut % (Auto) 59.3 Lymph % (Auto) 32.0 Crowley % (Auto) 7.0 Eos % (Auto) 1.2 Baso % (Auto) 0.3 Neut # (Auto) 3.83 Lymph # (Auto) 2.07 Crowley # (Auto) 0.45 Eos # (Auto) 0.08 Baso # (Auto) 0.02 Immature Gran # (Auto) 0.01 PT INR APTT 31.7 H PTT Ratio 1.1 D-Dimer Sodium Potassium Chloride Carbon Dioxide Anion Gap BUN Creatinine Est Cr Clr Drug Dosing Est GFR ( Amer) Est GFR (Non-Af Amer) BUN/Creatinine Ratio Glucose Calcium Magnesium Total Bilirubin AST ALT Alkaline Phosphatase Troponin I NT-Pro-B Natriuret Pep Total Protein Albumin Globulin Albumin/Globulin Ratio Triglycerides Cholesterol LDL Cholesterol, Calc VLDL Cholesterol, Calc HDL Cholesterol Cholesterol/HDL Ratio Lipase TSH Lyme Disease IgG Ab Negative Lyme Disease IgM Ab Negative 12/20/19 05:24 WBC RBC Hgb Hct MCV MCH MCHC RDW Std Deviation RDW Coeff of Mariela Plt Count MPV Immature Gran % (Auto) Neut % (Auto) Lymph % (Auto) Crowley % (Auto) Eos % (Auto) Baso % (Auto) Neut # (Auto) Lymph # (Auto) Crowley # (Auto) Eos # (Auto) Baso # (Auto) Immature Gran # (Auto) PT INR APTT PTT Ratio D-Dimer Sodium 136 Potassium 3.8 Chloride 104 Carbon Dioxide 29 Anion Gap 3.0 BUN 14 Creatinine 0.82 Est Cr Clr Drug Dosing 68.2 Est GFR ( Amer) 86.4 Est GFR (Non-Af Amer) 74.6 BUN/Creatinine Ratio 17.2 Glucose 131 H Calcium 8.7 Magnesium Total Bilirubin AST ALT Alkaline Phosphatase Troponin I < 0.015 NT-Pro-B Natriuret Pep Total Protein Albumin Globulin Albumin/Globulin Ratio Triglycerides 146 Cholesterol 177 LDL Cholesterol, Calc 96 VLDL Cholesterol, Calc 29 HDL Cholesterol 52 Cholesterol/HDL Ratio 3 Lipase TSH Lyme Disease IgG Ab Lyme Disease IgM Ab
[2019-12-20] MEDS: METOPROLOL SUCC 25MG EXT REL TAB PO SCH (11:49)
--- NOTE | 2019-12-20 14:41 | Hospitalist Progress Note ---
Date of Service December 20, 2019 Assessment & Plan (1) Chest pain: Palpitations Chest Pain/Jaw Pain Uncontrolled HTN R/O ACS Troponin X 2: Negative EKG: No signs of acute ischemia ECHO:No regional wall motion abnormality Neck CTA:No dissection or stenosis within the major vessels of the neck. CXR:No acute cardiopulmonary findings. Planned for stress test tomorrow Monitor on Tele Increased to Irbesartan 75mg daily Started Metoprolol 12.5mg daily Appreciate Cardiology Input Hyperlipidemia On Lipitor GERD Continue Pantoprazole Hypothyroidism TSH normal Continue Levothyroxine H/O Malignant Melanoma S/P surgery DVT Px: Lovenox SQ Code Status Full code Admission and Anticipated Discharge Date Admission Date: December 20, 2019 Subjective Patient is seen and examined at bedside States feeling better today Palpitations, Jaw pain and chest tightness resolved Denies chest pain, Dyspnea, dizziness, nausea, abd pain Discussed with Cardiology today Planned for stress test tomorrow Offers no other complaints Review of Systems Review of Systems: All systems reviewed & are unremarkable except as noted in HPI & below Physical Exam Physical Exam: Physical Exam: Vitals signs as noted above General Appearance:Moderately built and nourished, no apparent distress Head: normocephalic, Atraumatic Eyes: normal inspection, EOMI Neck: supple, Trachea midline Respiratory/Chest: Normal breath sounds, CTA Cardiovascular: S1, S2, No murmur Abdomen/GI:Soft, Non tender, Bowel sounds present Extremities/Musculoskelatal:normal inspection, no edema Neurologic/Psych:AAOX3, grossly no focal neurological deficits Skin: normal color, warm Results & Data Results & Data ([facility]) Vital Signs (Past 12 Hours) Vital Signs Temp Pulse Pulse Resp BP Pulse Ox 12/20/19 11:51 37.0 C 72 18 105/63 99 12/20/19 08:23 36.9 C 66 18 148/61 H 96 12/20/19 07:11 69 12/20/19 02:48 36.8 C 82 16 152/83 H 100 12/20/19 02:45 92 H Laboratory Results Short CBC 12/19/19 12/20/19 Range/Units 23:50 05:24 WBC 7.38 6.46 (4.8-10.8) K/uL Hgb 12.2 11.4 L (12.0-16.0) g/dL Hct 36.7 L 35.1 L (37-47) % Plt Count 287 262 (130-400) K/uL BMP 12/19/19 12/20/19 23:50 05:24 Sodium 137 136 Potassium 3.5 3.8 Chloride 102 104 Carbon Dioxide 30 29 BUN 16 14 Creatinine 0.95 0.82 Glucose 99 131 H Calcium 9.0 8.7 Cardiac Enzymes 12/19/19 12/20/19 Range/Units 23:50 05:24 Troponin I < 0.015 < 0.015 (0-0.045) ng/ml Liver Function 12/19/19 Range/Units 23:50 Total Bilirubin 0.4 (0.2-1) mg/dl AST 15 (15-37) U/L ALT 28 (12-78) U/L Alkaline Phosphatase 76 (45-117) U/L Albumin 4.2 (3.4-5.0) gm/dl
[2019-12-20] MEDS: ACETAMINOPHEN 325 MG TAB PO PRN (21:32)
--- NOTE | 2019-12-21 06:03 | Electrocardiogram Report ---
Test Reason : Blood Pressure : / mmHG Vent. Rate : 100 BPM Atrial Rate : 100 BPM P-R Int : 176 ms QRS Dur : 086 ms QT Int : 372 ms P-R-T Axes : 065 006 051 degrees QTc Int : 480 ms Normal sinus rhythm Possible Left atrial enlargement Prolonged QT No previous ECGs available Confirmed by Phil Morrison ([id number]) on 12/21/2019 6:03:01 AM Referred By: REFERRED SELF Confirmed By:Phil Morrison
[2019-12-21] MEDS: LEVOTHYROXINE SODIUM 75 MCG TABLET PO SCH (06:05)
[2019-12-21 06:42] LABS: BUN Creatinine Ratio 13.5 (10-20); Calcium 8.9 mg/dl (8.5-10.1); Est GFR (African American) 99.5; Est GFR (Non-African American) 85.8; Potassium 4.1 mmol/L (3.5-5.1)
[2019-12-21] MEDS: ACETAMINOPHEN 325 MG TAB PO PRN (07:54)
[2019-12-21] MEDS: ENOXAPARIN INJ 40 MG/0.4 ML SYR SQ SCH (08:23)
[2019-12-21] MEDS ORDERED: IRBESARTAN 75 MG TAB PO SCH (09:00)
--- NOTE | 2019-12-21 09:22 | Cardiology Progress Note ---
Date of Service December 21, 2019 Assessment & Plan (1) Intermittent palpitations: Patient is a 64-year-old female history of hypertension, hyperlipidemia and strong family history of premature coronary disease who is been experiencing symptoms of tachypalpitations and chest pressure for approximately 3 weeks. On presentation patient mild elevated heart rate and elevated blood pressures but no acute ischemia by EKG and enzyme to date. Stress echocardiogram this morning as above negative for ischemia good workload tolerance, appropriate heart rate and blood pressure response Plan: Continue current medications with addition of low-dose metoprolol succinate Continue all other prehospital medication (2) Chest pain: (3) Hypertension: As above (4) Hyperlipidemia: (5) Family history of premature coronary artery disease: Admission and Anticipated Discharge Date Admission Date: December 20, 2019 Subjective Patient seen and examined, chart, medications, telemetry reviewed. No chest pains or discomfort overnight. Blood pressure better controlled. No dizziness or lightheadedness. Physical Exam Constitutional: WD/WN, vitals as above Eyes: PERRL, conjunctivae normal, anicteric sclerae ENMT: external ear and nose normal, oropharynx normal Neck: trachea midline, no thyromegaly Respiratory: normal respiratory effort, lungs clear to auscultation Cardiovascular: Rate/Rhythm: regular rate and regular rhythm Heart Sounds: normal S1 and normal S2; no gallop and no murmur Palpation: normal PMI Vessels: normal carotid upstroke and radial pulses present; no JVD and no carotid bruit Extremities: no edema Gastrointestinal (Abdomen): normal bowel sounds, soft, nontender, no hepatosplenomegaly Musculoskeletal: no cyanosis or clubbing, extremities motor strength 5/5 Skin: no rashes, warm and dry Neurologic: PERRL, EOMI, accommodation nl, no face palsy, no dysarthria Psychiatric: A+Ox3, euthymic affect Results & Data ([facility]) Vital Signs (Past 12 Hours) Vital Signs Temp Pulse Pulse Resp BP BP Pulse Ox 12/21/19 07:43 36.8 C 70 18 127/80 98 12/21/19 03:26 37.0 C 68 17 108/68 98 12/21/19 00:06 71 12/20/19 23:51 37.1 C 71 18 113/70 98 Laboratory Results Laboratory Results - last 24 hr 12/20/19 12/20/19 12/21/19 14:14 14:14 05:47 Sodium 141 Potassium 4.1 Chloride 109 H Carbon Dioxide 28 Anion Gap 4.0 BUN 10 Creatinine 0.73 Est Cr Clr Drug Dosing 71.0 Est GFR ( Amer) 99.5 Est GFR (Non-Af Amer) 85.8 BUN/Creatinine Ratio 13.5 Glucose 90 Calcium 8.9 Magnesium 2.0 COVID-19 Eval [facility] SARS-CoV-2, RNA, NAAT NEGATIVE Diagnostic Findings Stress echocardiogram: Patient exercised for 9 minutes on a standard Padilla protocol to an estimate met level of 10.1 mets to greater than 95% age-predicted maximal heart rate without cardiac symptom or complaint. No ischemic changes were noted on EKG with only minor ST flattening inferiorly LV systolic function and wall motion was normal at rest and stress Impression: Stress echocardiogram negative for ischemia at high workload and appropriate heart rate response (1) Hypertension Hypertension type: essential hypertension Qualified Code(s): I10 - Essential (primary) hypertension
[2019-12-21] MEDS: ATORVASTATIN 20 MG TAB PO SCH (09:30)
[2019-12-21] MEDS: METOPROLOL SUCC 25MG EXT REL TAB PO SCH (09:31)
[2019-12-21] MEDS: PANTOprazole 40 MG TAB PO SCH (09:31)
[2019-12-21] MEDS: ASPIRIN 81 MG ECTAB PO SCH (09:31)
[2019-12-21] MEDS: CHOLECALCIFEROL 1,000 UNITS 25 MCG TAB PO SCH (09:31)
--- NOTE | 2019-12-21 11:17 | Hospitalist Progress Note ---
Date of Service December 21, 2019 Assessment & Plan (1) Chest pain: Palpitations Chest Pain/Jaw Pain Uncontrolled HTN R/O ACS Troponin X 2: Negative EKG: No signs of acute ischemia ECHO:No regional wall motion abnormality Neck CTA:No dissection or stenosis within the major vessels of the neck. CXR:No acute cardiopulmonary findings. Stress test: Negative for Ischemia Monitor on Tele Continue Irbesartan 75mg daily Continue Metoprolol 12.5mg daily Appreciate Cardiology Input Hyperlipidemia On Lipitor GERD Continue Pantoprazole Hypothyroidism TSH normal Continue Levothyroxine H/O Malignant Melanoma S/P surgery DVT Px: Lovenox SQ Code Status Full code Admission and Anticipated Discharge Date Admission Date: December 20, 2019 Subjective Patient is seen and examined at bedside States feel well today Offers no complaints Had stress ECHO negative for Ischemia Eager to get discharged Denies chest pain, Dyspnea, dizziness, nausea, abd pain Review of Systems Review of Systems: All systems reviewed & are unremarkable except as noted in HPI & below Physical Exam Physical Exam: Physical Exam: Vitals signs as noted above General Appearance:Moderately built and nourished, no apparent distress Head: normocephalic, Atraumatic Eyes: normal inspection, EOMI Neck: supple, Trachea midline Respiratory/Chest: Normal breath sounds, CTA Cardiovascular: S1, S2, No murmur Abdomen/GI:Soft, Non tender, Bowel sounds present Extremities/Musculoskelatal:normal inspection, no edema Neurologic/Psych:AAOX3, grossly no focal neurological deficits Skin: normal color, warm Results & Data Results & Data ([facility]) Vital Signs (Past 12 Hours) Vital Signs Temp Pulse Pulse Resp BP BP Pulse Ox 12/21/19 07:43 36.8 C 70 18 127/80 98 12/21/19 03:26 37.0 C 68 17 108/68 98 12/21/19 00:06 71 12/20/19 23:51 37.1 C 71 18 113/70 98 Laboratory Results [facility] 12/21/19 05:47 Sodium 141 Potassium 4.1 Chloride 109 H Carbon Dioxide 28 BUN 10 Creatinine 0.73 Glucose 90 Calcium 8.9
--- NOTE | 2019-12-21 11:21 | Discharge Summary ---
Date of Service December 21, 2019 Admission HPI Per Admitting Provider History obtained from patient, family, and records. Medical history significant for hypertension, hyperlipidemia, GERD, hypothyroidism, skin cancer status post surgery. 3 weeks ago patient noted transient left-sided upper chest tightness with some radiation to the neck with no other symptoms. Occurring about weekly. No consultations done. About 2 days ago patient noted recurrence of left upper chest tightness symptoms with neck radiation going to the left ear associated with palpitations, nausea, dizziness without headache, fast heartbeat. No cough, no S OB. No unusual stress at home other than caring for who was hospitalized a few months back for heart issues. Patient suspected her blood pressure might be high. Discomfort relief with ibuprofen intake. Patient brought to the ER by . Medical History as above Surgical History : Eye injections, oophorectomy, cataract surgery, skin cancer surgery Family History : Diabetes, heart disease, hypertension Personal/Social history : Non-smoker, occasional EtOH intake, retired schoolteacher Admission Exam Per Admitting Provider Physical Exam Physical Exam: GENERAL: Comfortable, pleasant, looks younger for stated age, no respiratory distress SKIN: Normal color, warm HEENT: [place] palpebral conjunctivae, no ptosis, dry buccal mucosa NECK : Supple, no tenderness CHEST : CTA, no tenderness HEART : RRR, no obvious murmurs ABDOMEN: Some distention, nontender EXTREMITIES : No LE swelling/tenderness, no other conspicuous deformities noted NEUROLOGIC : Coherent, no facial asymmetry, no other gross focality Principal Diagnosis Intermittent Palpitations Uncontrolled Hypertension Atypical chest pain Discharge Data Allergies Allergy/AdvReac Type Severity Reaction Status Date / Time isopropamide Allergy Intermediate SWELLING Verified 12/20/19 00:33 prochlorperazine Allergy Intermediate SWELLING Verified 12/20/19 00:33 POP Inhibitors AdvReac Intermediate COUGH Verified 12/20/19 00:33 Consultations 12/20/19 01:39 ED Decision to Admit Stat 12/20/19 02:47 Consult Cardiology Routine Procedures Performed Neck CTA:No dissection or stenosis within the major vessels of the neck. CXR:No acute cardiopulmonary findings. Stress ECHO: Stress echo is negative for inducible ischemia. Exercise capacity is above average. The exercise echocardiogram examination is normal without resting left ventricular wall motion abnormalities or inducible ischemia. Ordered Studies 12/20/19 01:34 CT angio neck with con Urgent Hospital Course (1) Chest pain: Palpitations Chest Pain/Jaw Pain Uncontrolled HTN R/O ACS Troponin X 2: Negative EKG: No signs of acute ischemia ECHO:No regional wall motion abnormality Neck CTA:No dissection or stenosis within the major vessels of the neck. CXR:No acute cardiopulmonary findings. Stress test: Negative for Ischemia Monitor on Tele Continue Irbesartan 75mg daily Continue Metoprolol 12.5mg daily Appreciate Cardiology Input Hyperlipidemia On Lipitor GERD Continue Pantoprazole Hypothyroidism TSH normal Continue Levothyroxine H/O Malignant Melanoma S/P surgery DVT Px: Lovenox SQ Code Status Full code Total Time Total Time Spent Total Time Spent (In Minutes): 38 minutes Total Time Includes: Examination of the Patient, Discharge Planning, Medication Reconciliation, Communication With Other Providers and Other Discharge Plan Discharge Items Patient Disposition: Home - Self-Care Reason For Visit: CP Discharge Diagnosis: Palpitations Hypertension Activity: Resume your previous activity Exercise/Sports: Gradually increase as tolerated Non-emergency contact: Primary Care Provider and Director Of Annual Giving Call non-emergency contact if: you have any medication questions, your symptoms worsen, your pain is not controlled, your pain is worsening, your pain is unusual for you, your pain is concerning for you and you have a fever Follow-up/Referrals: Kitty Cano MD [Primary Care Provider] - (Date & Time 12/28/2019 11:00 AM Provider Kitty Cano MD Department General Internal Medicine [facility] ) Diet: Heart Healthy Addtl Attending Provider Instructions: Follow-up with your primary care physician Dr. Cano on 12/28/2019 11:00 AM as scheduled Follow up with your Director Of Annual Giving as recommended by your software release manager Seek immediate medical attention if your symptoms reoccur or worsen Pending Studies at Discharge: No Stand-Alone Forms: My [employer], Smoking Cessation Medications and DC Order Prescriptions: New metoprolol succinate 25 mg Tablet Extended Release 24 Hr 12.5 mg PO QAM Qty: 30 RF: 0 Continued atorvastatin 20 mg Tablet 20 mg PO DAILY RF: 0 aspirin 81 mg Tablet,Delayed Release (Dr/Ec) 81 mg PO DAILY RF: 0 levothyroxine 75 mcg Tablet 75 mcg PO DAILY RF: 0 omeprazole 20 mg capsule,delayed release(DR/EC) 20 mg PO DAILY RF: 0 irbesartan 75 mg Tablet 75 mg PO DAILY RF: 0 cholecalciferol (vitamin D3) [Vitamin D3] 25 mcg (1,000 unit) Capsule 25 mcg PO DAILY RF: 0 aa-0-csk-epa-fish oil-vit D3 [Fish Oil-Vit D3] 300-1,000-1,000 mg-mg-unit Capsule 1 cap PO DAILY PRN (Reason: NEEDED) RF: 0 Discharge Orders: Discharge Order (Routine); Ordered 12/21/19 Ordered By: Dilip Hess Admission Data Admit Date/Time: 12/20/19 12:14 Attending Provider: Dilip Hess Admit Provider: Dilip Hess Primary Care Provider: Kitty Cano Other Providers: Don Flores ; Maximiliano Badillo ; Rock Rivera ; Efrain Rosario ; Kalia Zhang ; Bill Celis ; Nate Diaz ; Olimpia Mixon ; Zaina Alexandra ; Ralph Hankins Other Interventions: Discharge Summary Assessment (RN) Last Done: 12/21/19 11:33
--- NOTE | 2019-12-21 22:26 | Electrocardiogram Report ---
Test Reason : Blood Pressure : / mmHG Vent. Rate : 068 BPM Atrial Rate : 068 BPM P-R Int : 190 ms QRS Dur : 084 ms QT Int : 406 ms P-R-T Axes : 043 010 055 degrees QTc Int : 431 ms Normal sinus rhythm Normal ECG When compared with ECG of 19-DEC-2019 23:47, QT has shortened Confirmed by Phil Morrison ([id number]) on 12/21/2019 10:26:05 PM Referred By: REFERRED SELF Confirmed By:Phil Morrison
== END 2019-12-21 12:10 | disposition home or self-care (01) ==
LOC: 2S 23:37 → ED 23:37 → 2S 12-20 02:16

== ENCOUNTER 2025-02-01 17:31 | Observation (INO) ==
[2025-02-01 18:06] LABS: Hematocrit (blood only) 37.2 % (37.0-47.0); Hemoglobin 12.7 g/dL (12.0-16.0); Immature Granulocytes # (auto) 0.01 K/uL (0.01-0.20); Immature Granulocytes % (auto) 0.2 %; Mean Corpuscular Hemoglobin 30.8 pg (25.0-34.0); Mean Corpuscular Volume 90.3 fL (80.0-100.0); Platelet Count 233 K/uL (130-400); RDW Standard Deviation 42.3 fL (36.4-46.3); Red Blood Count 4.12 M/uL (4.20-5.40); White Blood Count 5.65 K/ul (4.8-10.8)
--- NOTE | 2025-02-01 18:17 | Emergency Department Note ---
History of Present Illness General Chief complaint: Cardiac Assessment Stated complaint: HIGH BP, CHEST TIGHTNESS, LT ARM WEIRD, PAST WK Time Seen by Provider: 02/01/25 17:40 Source: patient Mode of arrival: ambulatory Limitations: no limitations History of Present Illness Maximum Pain Intensity: 4 Patient is a 69-year-old female with history of hypertension and hyperlipidemia who presents for chest discomfort on and off for the past 3 days. She notices "a tightness" that comes and goes across her anterior chest and her left shoulder. Not exacerbated by exertion or position. No associated lightheadedness, dizziness, palpitations, shortness of breath, nausea, vomiting, diaphoresis. She also noted her blood pressure was elevated today and she took an extra dose of her metoprolol at 1715. She also took 81 mg of aspirin at that time. She does note that she has been outside decorating the house for the holidays more recently. She also states that she has a significant family history in both her mother and father side of VT at a young age. Not an active smoker. Home Medications Medication Instructions Recorded Confirmed Type aspirin 81 mg tablet,delayed 81 mg PO DAILY 12/20/19 02/01/25 History release irbesartan 75 mg tablet 37.5 mg PO DAILY 12/20/19 02/01/25 History levothyroxine 75 mcg tablet 75 mcg PO DAILY 12/20/19 02/01/25 History omeprazole 20 mg capsule,delayed 20 mg PO DAILY 12/20/19 02/01/25 History release metoprolol succinate 25 mg 12.5 mg (1/2 x 25 mg) PO QAM #30 12/21/19 02/01/25 Rx tablet,extended release 24 hr tabs atorvastatin 40 mg tablet 40 mg PO QAM 02/01/25 02/01/25 History Allergies Allergy/AdvReac Type Severity Reaction Status Date / Time isopropamide Allergy Intermediate SWELLING Verified 02/01/25 19:31 prochlorperazine Allergy Intermediate SWELLING Verified 02/01/25 19:31 POP Inhibitors AdvReac Intermediate COUGH Verified 02/01/25 19:31 Past Med/Surg History Problem List (Updated 02/01/25 @ 19:42 by Ronni Frey MD) Atypical chest pain (Acute) Left radial fracture Right trigger finger Medical History Family history of premature coronary artery disease Hyperlipidemia Intermittent palpitations Hypertensive crisis Thyroid dysfunction Hypertension Surgical History No significant past surgical history Social History Smoking Status: Never smoker Hx Alcohol Use: Yes Alcohol type: wine Hx Substance Use: No Preferred Language: Yoruba Communication Ability: Effective 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 Physical Exam Vital Signs Vital Signs - 24 hr 02/01/25 17:35 02/01/25 17:40 02/01/25 18:30 Temperature 36.6 C Temperature Source Temporal Artery Scan Pulse Rate 84 68 Pulse Rate from SpO2 Sensor Respiratory Rate 22 Blood Pressure 201/91 H Blood Pressure Mean 127 Blood Pressure Position Sitting Pulse Oximetry 100 99 Oxygen Delivery Method Room Air Sepsis Recent Fever Within 48 Hours No Sepsis New/Unexplained Change in Mental Status No Sepsis Action Taken by Nursing No Action Required 02/01/25 18:30 02/01/25 18:30 Temperature Temperature Source Pulse Rate 66 Pulse Rate from SpO2 Sensor 66 Respiratory Rate 14 Blood Pressure 145/81 H Blood Pressure Mean 112 Blood Pressure Position Pulse Oximetry 100 Oxygen Delivery Method Sepsis Recent Fever Within 48 Hours Sepsis New/Unexplained Change in Mental Status Sepsis Action Taken by Nursing See below Constitutional WD/WN, vitals as above Respiratory normal respiratory effort, lungs clear to auscultation Cardiovascular RRR, no murmur, no edema Medical Decision Making Differential Diagnosis DDx includes but not limited to: ACS, anxiety, GERD, pneumonia, PE, pericarditis, myocarditis, costochondritis Medical Records Attestation: I reviewed the patient's medical records. Home Medications Current Medication List: was personally reviewed by me Laboratory Data Attestation: I reviewed the patient's lab results. 02/01/25 17:51 02/01/25 17:51 Lab Results 02/01/25 Range/Units 17:51 WBC 5.65 (4.8-10.8) K/ul RBC 4.12 L (4.20-5.40) M/uL Hgb 12.7 (12.0-16.0) g/dL Hct 37.2 (37.0-47.0) % MCV 90.3 (80.0-100.0) fL MCH 30.8 (25.0-34.0) pg MCHC 34.1 (32.0-36.0) g/dL RDW Std Deviation 42.3 (36.4-46.3) fL RDW Coeff of Mariela 12.9 (11.5-14.5) % Plt Count 233 (130-400) K/uL MPV 10.2 (9.4-12.4) fL Immature Gran % (Auto) 0.2 % Neut % (Auto) 56.1 % Lymph % (Auto) 31.5 % [place] % (Auto) 9.2 % Eos % (Auto) 2.3 % Baso % (Auto) 0.7 % Neut # (Auto) 3.17 (1.40-6.50) K/uL Lymph # (Auto) 1.78 (1.20-3.40) K/uL [place] # (Auto) 0.52 (0.11-0.59) K/uL Eos # (Auto) 0.13 (0.00-0.50) K/uL Baso # (Auto) 0.04 (0.00-0.20) K/uL Immature Gran # (Auto) 0.01 (0.01-0.20) K/uL D-Dimer 330 (0-500) ug/L FEU Sodium 138 (136-145) mmol/L Potassium 3.5 (3.5-5.1) mmol/L Chloride 104 (98-107) mmol/L Carbon Dioxide 28 (21-32) mmol/L Anion Gap 6 (3-11) BUN 15 (6-23) mg/dl Creatinine 0.85 (0.6-1.2) mg/dl Est Cr Clr Drug Dosing 56.8 ml/min eGFR 73.20 BUN/Creatinine Ratio 17.6 (10-20) Glucose 120 H (70-99(Fasting)) mg/dl Calcium 9.2 (8.6-10.3) mg/dl Total Bilirubin 0.4 (0.2-1.0) mg/dl AST 18 (13-39) U/L ALT 14 (7-52) U/L Alkaline Phosphatase 82 (34-104) U/L Troponin I High Sens 3.1 (0-14) pg/ml Total Protein 6.9 (6.0-8.3) gm/dl Albumin 4.3 (3.4-5.0) gm/dl Globulin 2.6 (2.5-4.0) gm/dl Albumin/Globulin Ratio 1.7 (0.9-2) Lipase 30 (11-82) U/L Imaging Data Radiologist's Impression: Chest X-Ray 02/01/25 17:40 Chest radiograph, one view History: Chest pain Comparison: None Findings: Single AP view of the chest performed. No focal consolidation or pleural effusion. No pneumothorax. The cardiomediastinal silhouette is within normal limits. Normal pulmonary vascularity. No evidence for lymphadenopathy. No visualized bony or soft tissue abnormality. Impression: Normal chest radiograph Electronically signed by Gustavo Fletcher 02-01-2025 6:52 PM ECG Data Attestation: I personally reviewed and interpreted this ECG as follows: Indication: + chest pain Rate (beats per minute): 74 Rhythm: + sinus rhythm ECG Intervals/blocks: + Normal QRS, + Normal QT and + Normal DC ECG [place]: + Normal ECG ST segments: + Normal ST segments Comparison ECG Date: from (12/20/2024) Change: no significant change MDM Narrative Patient is a well-appearing 69-year-old female presents with several days of intermittent chest discomfort. Hypertensive on arrival here in the ED. Pain is atypical for anginal equivalent. EKG shows no ischemic findings. Initial troponin negative. Low risk for PE per Wells criteria negative D-dimer. Low suspicion for dissection based on presentation and negative D-dimer. Chest x- ray was independently reviewed and negative for acute cardiopulmonary process. Patient is moderate risk for Mace per heart score. I discussed follow-up versus admission for ACS rule out. Patient is leaning more towards admission and is stable for telemetry bed with the hospitalist service for further management. 324 of aspirin and sublingual nitro were ordered. Impression & Plan Atypical chest pain Discharge Plan Visit Data Chief Complaint: Cardiac Assessment Stated Complaint: HIGH BP, CHEST TIGHTNESS, LT ARM WEIRD, PAST WK ED Provider: Ronni Frey Discharge Problem: Atypical chest pain Patient Disposition: Admitted As Inpatient Condition: Good Forms Stand Alone Forms: [employer] Prescriptions Prescriptions: No Action aspirin 81 mg Tablet,Delayed Release (Dr/Ec) 81 mg PO DAILY levothyroxine 75 mcg Tablet 75 mcg PO DAILY omeprazole 20 mg capsule,delayed release(DR/EC) 20 mg PO DAILY irbesartan 75 mg Tablet 37.5 mg PO DAILY metoprolol succinate 25 mg Tablet Extended Release 24 Hr 12.5 mg PO QAM Qty: 30 0RF atorvastatin 40 mg tablet 40 mg PO QAM Referrals Referrals: Kitty Cano MD [Primary Care Provider] -
[2025-02-01 18:25] LABS: Alanine Aminotransferase 14.0 U/L (7-52); Albumin Globulin Ratio 1.7 (0.9-2); Albumin Level 4.3 gm/dl (3.4-5.0); Alkaline Phosphatase 82.0 U/L (34-104); Anion Gap 6.0 (3-11); Bilirubin,Total 0.4 mg/dl (0.2-1.0); Blood Urea Nitrogen 15.0 mg/dl (6-23); Calcium 9.2 mg/dl (8.6-10.3); Carbon Dioxide 28.0 mmol/L (21-32); Chloride 104.0 mmol/L (98-107); Creatinine Clr Calc Pharmacy 56.8 ml/min; Globulin 2.6 gm/dl (2.5-4.0); Glucose 120.0 mg/dl (70-99(Fasting)); Lipase 30.0 U/L (11-82); Potassium 3.5 mmol/L (3.5-5.1); Sodium 138.0 mmol/L (136-145); Total Protein 6.9 gm/dl (6.0-8.3)
--- NOTE | 2025-02-01 18:53 | XRay Report ---
Chest radiograph, one view History: Chest pain Comparison: None Findings: Single AP view of the chest performed. No focal consolidation or pleural effusion. No pneumothorax. The cardiomediastinal silhouette is within normal limits. Normal pulmonary vascularity. No evidence for lymphadenopathy. No visualized bony or soft tissue abnormality. Impression: Normal chest radiograph Electronically signed by Gustavo Fletcher 02-01-2025 6:52 PM
[2025-02-01] MEDS: ASPIRIN CHEW 324 MG PO STA (20:13)
[2025-02-01] MEDS: NITROGLYCERIN SL 0.4 MG/TAB TAB SL STA (20:14)
--- NOTE | 2025-02-01 20:22 | History & Physical Report ---
Date of Service February 01, 2025 Assessment & Plan (1) Chest pain: Plan: 69-year-old female with past medical history significant for hypothyroidism, hyperlipidemia, stable central retinal vein occlusion of left eye, hypertension, GERD, history of melanoma skin, presents with chest pain. Patient states she is having mild chest discomfort for about a week now. 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 She climbed steps several times yesterday and today. With activity there is no much discomfort but while she was resting she noticed increasing chest tightness radiating to neck region. No nausea. No shortness of breath. No headache. No dizziness. She noticed her blood pressure was slowly climbing up. Her systolic blood pressure went up to 150s when she decided come to the ER. In the ER when she came in systolic blood pressure was in 200s. Patient thinks some of the symptoms could be from anxiety. She states she had similar episode 4 years ago when the workup was okay and she was placed on antianxiety medication which she took for some time. Currently denies any headache. No blurred visions. Has some runny nose. No cough. Appetite is okay. No abdominal pain. Normal bowel and bladder movements. No rash. Chest pain EKG and initial troponin negative Significant family history Will follow serial cardiac enzymes and echo N.p.o. from midnight Monitoring med/telemetry Cardiac consult in a.m. for further recommendation Elevated blood pressure Hypertensive urgency versus situational Continue home medication of metoprolol and irbesartan IV labetalol as needed Will monitor Hyperlipidemia On statin Hypothyroidism On Synthyroid Will follow TSH GERD On omeprazole DVT prophylaxis SCDs Disposition Observation med/telemetry Full code History of Present Illness Chief Complaint: Chest pain Primary Care Provider: Kitty Cano MD 69-year-old female with past medical history significant for hypothyroidism, hyperlipidemia, stable central retinal vein occlusion of left eye, hypertension, GERD, history of melanoma skin, presents with chest pain. Patient states she is having mild chest discomfort for about a week now. 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 She climbed steps several times yesterday and today. With activity there is no much discomfort but while she was resting she noticed increasing chest tightness radiating to neck region. No nausea. No shortness of breath. No headache. No dizziness. She noticed her blood pressure was slowly climbing up. Her systolic blood pressure went up to 150s when she decided come to the ER. In the ER when she came in systolic blood pressure was in 200s. Patient thinks some of the symptoms could be from anxiety. She states she had similar episode 4 years ago when the workup was okay and she was placed on antianxiety medication which she took for some time. Currently denies any headache. No blurred visions. Has some runny nose. No cough. Appetite is okay. No abdominal pain. Normal bowel and bladder movements. No rash. Past med history. As mentioned above. Past surgical history. Colonoscopy. Colpopexy. Left heart catheterization. Lasering of secondary cataract left side. Removal of 1 ovary. Left cataract extraction. Cholecystectomy. Repair of bladder and vaginal cystocele. Repair of bladder defect. Excision of melanoma left leg in 1977. Vaginal hysterectomy. Social history. . No smoking. Alcohol occasional. No drug use. Family history. Father had hypertension, stroke, endocarditis, multiple HI in 50s resulting in . Mother had hypertension, of acute HI at age 45.. Sister had CABG at age 45. Sister has hypertension. Sister has frontal lobe dementia. Brother has diabetes. Daughter has diabetes. Brother has coronary disease at age 45 with stent placement and CABG Allergies Allergy/AdvReac Type Severity Reaction Status Date / Time isopropamide Allergy Intermediate SWELLING Verified 02/01/25 19:31 prochlorperazine Allergy Intermediate SWELLING Verified 02/01/25 19:31 POP Inhibitors AdvReac Intermediate COUGH Verified 02/01/25 19:31 Home Medications Medication Instructions Recorded Confirmed Type aspirin 81 mg tablet,delayed 81 mg PO DAILY 12/20/19 02/01/25 History release irbesartan 75 mg tablet 37.5 mg PO DAILY 12/20/19 02/01/25 History levothyroxine 75 mcg tablet 75 mcg PO DAILY 12/20/19 02/01/25 History omeprazole 20 mg capsule,delayed 20 mg PO DAILY 12/20/19 02/01/25 History release metoprolol succinate 25 mg 12.5 mg (1/2 x 25 mg) PO QAM #30 12/21/19 02/01/25 Rx tablet,extended release 24 hr tabs atorvastatin 40 mg tablet 40 mg PO QAM 02/01/25 02/01/25 History Past Med/Surg History Problem List (Updated 02/01/25 @ 20:37 by Alberto Juarez MD) Chest pain Atypical chest pain (Acute) Left radial fracture Right trigger finger Medical History Family history of premature coronary artery disease Hyperlipidemia Intermittent palpitations Hypertensive crisis Thyroid dysfunction Hypertension Surgical History No significant past surgical history Social History Smoking Status: Never smoker Hx Alcohol Use: Yes Alcohol type: wine Hx Substance Use: No Preferred Language: Peruvian Communication Ability: Effective Prosthetic Assistant Required: No Beliefs That Will Affect Care: None Current Living Situation: Spouse Other Information That Helps Us Care for You: No Feels Safe at Home: Yes Safety Concerns: Feels Safe At This Time Assistive Devices: Glasses Review of Systems Review of Systems: All systems reviewed & are unremarkable except as noted in HPI & below Physical Exam Physical Exam: General- Not in distress Head- atraumatic Eyes- PERRL. ENT- oropharynx clear Neck- supple, no JVD. Lungs- clear to auscultation no wheezing or crackles Heart- regular rate and rhythm; no murmur, no gallop. Abdomen- normal bowel sounds, soft, nontender, no distension Extremities- no pretibial edema, no erythema seen Neuro- alert, oriented PERRL, no facial palsy; no dysarthria; moves extremities Results & Data Results & Data Vital Signs (Past 12 Hours) Vital Signs Temp Pulse Resp BP Pulse Ox O2 Del Method 02/01/25 18:30 66 14 100 02/01/25 18:30 145/81 H 02/01/25 18:30 68 02/01/25 17:40 99 02/01/25 17:35 36.6 C 84 22 201/91 H 100 Room Air Diagnostic Findings Laboratory Results WBC 5.65 K/ul (4.8-10.8) 02/01/25 17:51 RBC 4.12 M/uL (4.20-5.40) L 02/01/25 17:51 Hgb 12.7 g/dL (12.0-16.0) 02/01/25 17:51 Hct 37.2 % (37.0-47.0) 02/01/25 17:51 MCV 90.3 fL (80.0-100.0) 02/01/25 17:51 MCH 30.8 pg (25.0-34.0) 02/01/25 17:51 MCHC 34.1 g/dL (32.0-36.0) 02/01/25 17:51 RDW Std Deviation 42.3 fL (36.4-46.3) 02/01/25 17:51 RDW Coeff of Mariela 12.9 % (11.5-14.5) 02/01/25 17:51 Plt Count 233 K/uL (130-400) 02/01/25 17:51 MPV 10.2 fL (9.4-12.4) 02/01/25 17:51 Immature Gran % (Auto) 0.2 % 02/01/25 17:51 Neut % (Auto) 56.1 % 02/01/25 17:51 Lymph % (Auto) 31.5 % 02/01/25 17:51 [place] % (Auto) 9.2 % 02/01/25 17:51 Eos % (Auto) 2.3 % 02/01/25 17:51 Baso % (Auto) 0.7 % 02/01/25 17:51 Neut # (Auto) 3.17 K/uL (1.40-6.50) 02/01/25 17:51 Lymph # (Auto) 1.78 K/uL (1.20-3.40) 02/01/25 17:51 [place] # (Auto) 0.52 K/uL (0.11-0.59) 02/01/25 17:51 Eos # (Auto) 0.13 K/uL (0.00-0.50) 02/01/25 17:51 Baso # (Auto) 0.04 K/uL (0.00-0.20) 02/01/25 17:51 Immature Gran # (Auto) 0.01 K/uL (0.01-0.20) 02/01/25 17:51 D-Dimer 330 ug/L FEU (0-500) 02/01/25 17:51 Sodium 138 mmol/L (136-145) 02/01/25 17:51 Potassium 3.5 mmol/L (3.5-5.1) 02/01/25 17:51 Chloride 104 mmol/L (98-107) 02/01/25 17:51 Carbon Dioxide 28 mmol/L (21-32) 02/01/25 17:51 Anion Gap 6 (3-11) 02/01/25 17:51 BUN 15 mg/dl (6-23) 02/01/25 17:51 Creatinine 0.85 mg/dl (0.6-1.2) 02/01/25 17:51 Est Cr Clr Drug Dosing 56.8 ml/min 02/01/25 17:51 eGFR 73.20 02/01/25 17:51 BUN/Creatinine Ratio 17.6 (10-20) 02/01/25 17:51 Glucose 120 mg/dl (70-99(Fasting)) H 02/01/25 17:51 Calcium 9.2 mg/dl (8.6-10.3) 02/01/25 17:51 Total Bilirubin 0.4 mg/dl (0.2-1.0) 02/01/25 17:51 AST 18 U/L (13-39) 02/01/25 17:51 ALT 14 U/L (7-52) 02/01/25 17:51 Alkaline Phosphatase 82 U/L (34-104) 02/01/25 17:51 Troponin I High Sens 3.1 pg/ml (0-14) 02/01/25 17:51 Total Protein 6.9 gm/dl (6.0-8.3) 02/01/25 17:51 Albumin 4.3 gm/dl (3.4-5.0) 02/01/25 17:51 Globulin 2.6 gm/dl (2.5-4.0) 02/01/25 17:51 Albumin/Globulin Ratio 1.7 (0.9-2) 02/01/25 17:51 Lipase 30 U/L (11-82) 02/01/25 17:51 Impressions Chest X-Ray 02/01/25 17:40 Chest radiograph, one view History: Chest pain Comparison: None Findings: Single AP view of the chest performed. No focal consolidation or pleural effusion. No pneumothorax. The cardiomediastinal silhouette is within normal limits. Normal pulmonary vascularity. No evidence for lymphadenopathy. No visualized bony or soft tissue abnormality. Impression: Normal chest radiograph Electronically signed by Gustavo Fletcher 02-01-2025 6:52 PM ECG Additional Comments: ECG. Normal sinus rhythm rate of 74. No significant changes found. Code Status & VTE Plan VTE Prophylaxis Plan VTE Prophylaxis will be ordered: Yes
[2025-02-01] MEDS ORDERED: NITROGLYCERIN SL 0.4 MG/TAB TAB SL PRN (22:54)
[2025-02-01] MEDS ORDERED: POLYETHYLENE (MIRALAX) 17 GM PACK PO PRN (22:54)
[2025-02-01] MEDS ORDERED: LABETALOL HCL IV 5 MG/ML 20ML IV PRN (22:54)
[2025-02-02 03:48] VITALS: RESP 18; O2SAT 98
[2025-02-02 05:44] LABS: Hematocrit (blood only) 33.6 % (37.0-47.0); Hemoglobin 11.3 g/dL (12.0-16.0); Immature Granulocytes # (auto) 0.01 K/uL (0.01-0.20); Immature Granulocytes % (auto) 0.2 %; Mean Corpuscular Hemoglobin 30.4 pg (25.0-34.0); Mean Corpuscular Volume 90.3 fL (80.0-100.0); Platelet Count 195 K/uL (130-400); RDW Standard Deviation 42.1 fL (36.4-46.3); Red Blood Count 3.72 M/uL (4.20-5.40); White Blood Count 4.87 K/ul (4.8-10.8)
[2025-02-02 06:01] LABS: Anion Gap 8.0 (3-11); Blood Urea Nitrogen 15.0 mg/dl (6-23); Calcium 8.8 mg/dl (8.6-10.3); Carbon Dioxide 26.0 mmol/L (21-32); Chloride 106.0 mmol/L (98-107); Creatinine Clr Calc Pharmacy 59.6 ml/min; Glucose 90.0 mg/dl (70-99(Fasting)); Magnesium 1.7 mg/dl (1.7-2.4); Potassium 4.1 mmol/L (3.5-5.1); Sodium 140.0 mmol/L (136-145)
[2025-02-02] MEDS: LEVOTHYROXINE SODIUM 75 MCG TABLET PO SCH (06:34)
[2025-02-02 07:51] VITALS: BP 148/72; TEMP 98.1
[2025-02-02 08:40] LABS: Thyroid Stimulating Hormone 2.092 uIu/ml (0.300-4.500)
--- NOTE | 2025-02-02 09:12 | Cardiology Consultation ---
Date of Consultation February 02, 2025 Assessment & Plan (1) Atypical chest pain: (2) Hypertension: Plan Assessment: 69 year old female with history of HTN presents to the ER with elevated blood pressures and intermittent chest pressure over the past few weeks, more notable at rest. EKG with no acute ST-T wave changes, Troponin negative x 3. BP markedly elevated on arrival systolic > 200mmHg. Plan: 1. Atypical Chest pain: 2. Hypertension -Patient has noticed her blood pressures slowly increasing with home monitoring. Reports unchanged medication regimen in over 10 years. She does not follow with cardiology. -Atypical chest pressure, often experienced during rest as well as occasional accompanying palpitations. -EKG NSR with no acute ischemic changes. -High sensitivity troponin negative x3 -Blood pressure trending down since arrival to the ER, but above target. -Will obtain stress echocardiogram to examine overall structure and function as well as examine for any concerns of inducible ischemia -Trend blood pressures and assess for hypertensive response during stress. -REview of telemetry NSR rates 60's. No acute events overnight. -Further recommendations pending stress echo. Case has been discussed with Dr. Rivera. Further recommendations regarding plan of care as per his assessment. I spent a total of 50 minutes on the date of service in preparation, delivery, documentation of the care provided to the patient excluding any time spent in the performance of separately billed services. ALBINA Rubio [facility] Cardiology [facility] Supervising Physician Co-Signing Physician Notes Attending attestation: Case reviewed with the advanced practitioner. I have personally performed a history and physical examination on the patient. I have reviewed the advanced practitioner's documentation on the date of service referenced in note, and I agree with, and take responsibility for the plan of care. Subjective: Patient with transient sensation of fluttering and chest heaviness while performing work around the house. Blood pressure was elevated on arrival to the hospital with systolic blood pressure of 200 mmHg. At home her blood pressure was in the 140s. Over these readings are very high for her. She has a family history of premature coronary heart disease with her mother having of what sounds like a sudden cardiac event. Exam: Cardiovascular regular rhythm, no murmurs Data: High-sensitivity troponin negative x 3. EKG performed on arrival 02/01/2025 reveals normal sinus rhythm at 74 bpm, normal EKG Exercise stress echocardiogram was negative for ischemia having achieved a high workload Impression/ Plan: Workup thus far is reassuring. - Patient stable for discharge from a cardiac perspective. Would continue her prior to hospital treatment with metoprolol succinate 12.5 mg daily. Would increase her home dose of irbesartan 75 mg which she takes 1/2 tablet a day to a full 75 mg tablet. - Would recommend a repeat basic metabolic panel after she has been on the new dose for about 1 to 2 weeks. -The patient has been on atorvastatin 40 mg daily historically for quite some time. Her most recent lipid panel performed in July, included an LDL level of 122 mg/dL. Would recommend increasing her atorvastatin to 80 mg by mouth daily. -Recommend follow-up with PCP with regards to high blood pressure and cholesterol treatment. Rock Rivera DO History of Present Illness Reason for Consultation: chest pain; elevated BP Requesting Physician: Dr. Cardoso [facility] hospitalist Attending Physician: Josué Cardoso MD History of Present Illness HPI: Patient is a 69 year old female with PMHx significant for hypothyroidism, HLD, stable central retinal vein occlusion of the left eye, HTN, GERD, hx of melanoma of the skin that presented to the ER with complaints of chest pressure. She noted that her blood pressure was elevated (systolic 150's) prompting her to present to the ER. Upon examination today she states that has been very busy preparing for the holiday, she has started checking her BP at home noting that it has been trending up. She notes some light pressure/tightness, more so when at rest. Unsure if he gets worse with exertion. She also endorses some palpitation sensation. She denies any recent cold/flu like symptoms, no changes in medications or diet. BP on arrival 201/91 EKG NSR Rate 74bpm and QTC 452ms chest xray negative High sensitivity troponin negative x3 Review of telemetry shows SR with rates in the 60's. No acute events overnight Allergies Allergy/AdvReac Type Severity Reaction Status Date / Time isopropamide Allergy Intermediate SWELLING Verified 02/01/25 19:31 prochlorperazine Allergy Intermediate SWELLING Verified 02/01/25 19:31 POP Inhibitors AdvReac Intermediate COUGH Verified 02/01/25 19:31 Home Medications Medication Instructions Recorded Confirmed Type aspirin 81 mg tablet,delayed 81 mg PO DAILY 12/20/19 02/01/25 History release irbesartan 75 mg tablet 37.5 mg PO DAILY 12/20/19 02/01/25 History levothyroxine 75 mcg tablet 75 mcg PO DAILY 12/20/19 02/01/25 History omeprazole 20 mg capsule,delayed 20 mg PO DAILY 12/20/19 02/01/25 History release metoprolol succinate 25 mg 12.5 mg (1/2 x 25 mg) PO QAM #30 12/21/19 02/01/25 Rx tablet,extended release 24 hr tabs atorvastatin 40 mg tablet 40 mg PO QAM 02/01/25 02/01/25 History Patient History Medical History Family history of premature coronary artery disease Hyperlipidemia Intermittent palpitations Hypertensive crisis Thyroid dysfunction Hypertension Surgical History No significant past surgical history Social History Smoking Status: Never smoker Hx Alcohol Use: Yes Alcohol type: wine Hx Substance Use: No Preferred Language: Faroese Communication Ability: Effective Attendant [facility] Required: No Beliefs That Will Affect Care: None Current Living Situation: Spouse Other Information That Helps Us Care for You: No Feels Safe at Home: Yes Safety Concerns: Feels Safe At This Time Assistive Devices: None Review of Systems Review of Systems: All systems reviewed & are unremarkable except as noted in HPI & below Physical Exam Constitutional: well developed and well nourished; no acute distress and not ill appearing Neck: normal visual inspection and trachea midline Respiratory: normal respiratory effort, lungs clear to auscultation Cardiovascular: RRR, no murmur, no edema Heart Sounds: normal S1 and normal S2 Vessels: no JVD Skin: no rashes, warm and dry Psychiatric: A+Ox3, euthymic affect Results & Data Vital Signs (Past 12 Hours) Vital Signs Temp Pulse Pulse Resp BP BP Pulse Ox 02/02/25 07:51 36.7 C 61 18 148/72 H 98 02/02/25 07:35 63 02/02/25 02:08 36.6 C 59 L 18 130/71 98 02/01/25 23:03 36.5 C 63 16 145/73 H 99 02/01/25 22:35 63 02/01/25 22:03 66 16 135/68 100 02/01/25 21:30 131/79 02/01/25 21:30 60 14 100 O2 Del Method 02/02/25 07:51 Room Air 02/02/25 07:35 02/02/25 02:08 Room Air 02/01/25 23:03 Room Air 02/01/25 22:35 02/01/25 22:03 Room Air 02/01/25 21:30 02/01/25 21:30 Laboratory Results Cardiac Enzymes 02/01/25 02/01/25 02/02/25 Range/Units 17:51 20:28 05:34 AST 18 (13-39) U/L Troponin I High Sens 3.1 3.8 3.4 (0-14) pg/ml CBC 02/01/25 02/02/25 Range/Units 17:51 05:34 WBC 5.65 4.87 (4.8-10.8) K/ul RBC 4.12 L 3.72 L (4.20-5.40) M/uL Hgb 12.7 11.3 L (12.0-16.0) g/dL Hct 37.2 33.6 L (37.0-47.0) % Plt Count 233 195 (130-400) K/uL Neut # (Auto) 3.17 2.18 (1.40-6.50) K/uL Lymph # (Auto) 1.78 2.03 (1.20-3.40) K/uL [place] # (Auto) 0.52 0.45 (0.11-0.59) K/uL Eos # (Auto) 0.13 0.18 (0.00-0.50) K/uL Baso # (Auto) 0.04 0.02 (0.00-0.20) K/uL Comprehensive Metabolic Panel 02/01/25 02/02/25 Range/Units 17:51 05:34 Sodium 138 140 (136-145) mmol/L Potassium 3.5 4.1 (3.5-5.1) mmol/L Chloride 104 106 (98-107) mmol/L Carbon Dioxide 28 26 (21-32) mmol/L BUN 15 15 (6-23) mg/dl Creatinine 0.85 0.81 (0.6-1.2) mg/dl Glucose 120 H 90 (70-99(Fasting)) mg/dl Calcium 9.2 8.8 (8.6-10.3) mg/dl AST 18 (13-39) U/L ALT 14 (7-52) U/L Alkaline Phosphatase 82 (34-104) U/L Total Protein 6.9 (6.0-8.3) gm/dl Albumin 4.3 (3.4-5.0) gm/dl Intake and Output 02/01/25 02/02/25 02/02/25 22:59 06:59 14:59 Intake Total 120 / 120 Balance 120 / 120 Intake: Oral 120 / 120 Other: Weight 70.8 kg 69.9 kg Weight Measurement Method Chair Scale Standing Scale Coding Level of Care Code 90457 IN/OBS CONSULT LVL 5,80M Diagnoses Atypical chest pain R07.89 Hypertension I10 Hypertension type: essential hypertension Time Spent (min) 50 (2) Hypertension Hypertension type: essential hypertension Qualified Code(s): I10 - Essential (primary) hypertension
[2025-02-02] MEDS: ACETAMINOPHEN 325 MG TAB PO PRN (09:31)
[2025-02-02] MEDS: ASPIRIN 81 MG ECTAB PO SCH (09:32)
[2025-02-02] MEDS: METOPROLOL SUCC 25MG EXT REL TAB PO SCH (09:32)
[2025-02-02] MEDS: LOSARTAN POTASSIUM 25 MG TAB PO SCH (09:32)
[2025-02-02] MEDS: ATORVASTATIN 40 MG TAB PO SCH (09:32)
--- NOTE | 2025-02-02 13:24 | Discharge Summary ---
Date of Service February 02, 2025 Admission HPI Per Admitting Provider 69-year-old female with past medical history significant for hypothyroidism, hyperlipidemia, stable central retinal vein occlusion of left eye, hypertension, GERD, history of melanoma skin, presents with chest pain. Patient states she is having mild chest discomfort for about a week now. 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 She climbed steps several times yesterday and today. With activity there is no much discomfort but while she was resting she noticed increasing chest tightness radiating to neck region. No nausea. No shortness of breath. No headache. No dizziness. She noticed her blood pressure was slowly climbing up. Her systolic blood pressure went up to 150s when she decided come to the ER. In the ER when she came in systolic blood pressure was in 200s. Patient thinks some of the symptoms could be from anxiety. She states she had similar episode 4 years ago when the workup was okay and she was placed on antianxiety medication which she took for some time. Currently denies any headache. No blurred visions. Has some runny nose. No cough. Appetite is okay. No abdominal pain. Normal bowel and bladder movements. No rash. Past med history. As mentioned above. Past surgical history. Colonoscopy. Colpopexy. Left heart catheterization. Lasering of secondary cataract left side. Removal of 1 ovary. Left cataract extraction. Cholecystectomy. Repair of bladder and vaginal cystocele. Repair of bladder defect. Excision of melanoma left leg in 1977. Vaginal hysterectomy. Social history. . No smoking. Alcohol occasional. No drug use. Family history. Father had hypertension, stroke, endocarditis, multiple MO in 50s resulting in . Mother had hypertension, of acute MO at age 45.. Sister had CABG at age 45. Sister has hypertension. Sister has frontal lobe dementia. Brother has diabetes. Daughter has diabetes. Brother has coronary disease at age 45 with stent placement and CABG Admission Exam Per Admitting Provider General- Not in distress Head- atraumatic Eyes- PERRL. ENT- oropharynx clear Neck- supple, no JVD. Lungs- clear to auscultation no wheezing or crackles Heart- regular rate and rhythm; no murmur, no gallop. Abdomen- normal bowel sounds, soft, nontender, no distension Extremities- no pretibial edema, no erythema seen Neuro- alert, oriented PERRL, no facial palsy; no dysarthria; moves extremities Principal Diagnosis 1. Atypical Chest pain 2. Hypertension Discharge Exam General- WD/WN F in NAD Head- atraumatic Eyes- PERRL. Neck- supple Lungs- clear to auscultation no wheezing or crackles Heart- regular rate and rhythm; no murmur Abdomen- normal bowel sounds, soft, nontender, no distension Extremities- no pretibial edema, no erythema seen Neuro- alert, oriented PERRL, no facial palsy; no dysarthria; moves extremities Discharge Data Allergies Allergy/AdvReac Type Severity Reaction Status Date / Time isopropamide Allergy Intermediate SWELLING Verified 02/01/25 19:31 prochlorperazine Allergy Intermediate SWELLING Verified 02/01/25 19:31 POP Inhibitors AdvReac Intermediate COUGH Verified 02/01/25 19:31 Consultations 02/01/25 19:38 ED Decision to Admit Stat 02/02/25 08:00 Consult Cardiology Routine Hospital Course (1) Chest pain: 69-year-old female with past medical history significant for hypothyroidism, hyperlipidemia, stable central retinal vein occlusion of left eye, hypertension, GERD, history of melanoma skin, presents with chest pain. Patient states she is having mild chest discomfort for about a week now. 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 She climbed steps several times yesterday and today. With activity there is no much discomfort but while she was resting she noticed increasing chest tightness radiating to neck region. No nausea. No shortness of breath. No headache. No dizziness. She noticed her blood pressure was slowly climbing up. Her systolic blood pressure went up to 150s when she decided come to the ER. In the ER when she came in systolic blood pressure was in 200s. Patient thinks some of the symptoms could be from anxiety. She states she had similar episode 4 years ago when the workup was okay and she was placed on antianxiety medication which she took for some time. Currently denies any headache. No blurred visions. Has some runny nose. No cough. Appetite is okay. No abdominal pain. Normal bowel and bladder movements. No rash. Chest pain EKG and initial troponin negative Significant family history serial cardiac enzymes and echo ordered Monitoring med/telemetry Cardiology consulted for further recommendations Per cardiology - High-sensitivity troponin negative x 3. EKG performed on arrival 02/01/2025 reveals normal sinus rhythm at 74 bpm, normal EKG Exercise stress echocardiogram was negative for ischemia having achieved a high workload Impression/ Plan: Workup thus far is reassuring. - Patient stable for discharge from a cardiac perspective. Would continue her prior to hospital treatment with metoprolol succinate 12.5 mg daily. Would increase her home dose of irbesartan 75 mg which she takes 1/2 tablet a day to a full 75 mg tablet. - Would recommend a repeat basic metabolic panel after she has been on the new dose for about 1 to 2 weeks. -The patient has been on atorvastatin 40 mg daily historically for quite some time. Her most recent lipid panel performed in July, included an LDL level of 122 mg/dL. Would recommend increasing her atorvastatin to 80 mg by mouth daily. -Recommend follow-up with PCP with regards to high blood pressure and cholesterol treatment. Elevated blood pressure Hypertensive urgency versus situational Medications adjusted as above Hyperlipidemia On statin Hypothyroidism On Synthroid TSH wnl GERD On omeprazole Total Time Total Time Spent Total Time Spent (In Minutes): 40 Discharge Plan Discharge Items Patient Disposition: Home - Self-Care Reason For Visit: CHEST PAIN, ELEVATED BP Discharge Diagnosis: 1. Atypical Chest pain 2. Hypertension Condition on Discharge: Good Activity: Per Instructions section Non-emergency contact: Primary Care Provider and Line Welder Call non-emergency contact if: you have any medication questions and your symptoms worsen Follow-up/Referrals: Kitty Cano MD [Primary Care Provider] - (Date & Time 02/08/2025 10:20 AM Provider: Martha Hong MD General Internal Medicine [facility] ) Diet: Heart Healthy Add Attending Provider Instructions: Follow up with primary care physician and provider education specialist. The appointment with your primary care physician was scheduled for you for 02/08/2025. Continue taking your metoprolol at current dose 12.5 mg daily, increase irbesartan to 75 mg daily (full tablet), and increase atorvastatin to 80 mg daily. Monitor your blood pressure at home if you can, and keep a log. Discuss your numbers with your health care providers as your medications may need further adjustment. You will also need a blood work (BMP) in 1 -2 weeks, to monitor your kidney function. Pending Studies at Discharge: No Stand-Alone Forms: My [facility] [employer], Smoking Cessation Medications and DC Order Prescriptions: New atorvastatin 80 mg tablet 80 mg PO DAILY Qty: 30 0RF irbesartan 75 mg tablet 75 mg PO DAILY Qty: 30 0RF Continued aspirin 81 mg Tablet,Delayed Release (Dr/Ec) 81 mg PO DAILY levothyroxine 75 mcg Tablet 75 mcg PO DAILY omeprazole 20 mg capsule,delayed release(DR/EC) 20 mg PO DAILY metoprolol succinate 25 mg Tablet Extended Release 24 Hr 12.5 mg PO QAM Qty: 30 0RF Discontinued irbesartan 75 mg Tablet 37.5 mg PO DAILY atorvastatin 40 mg tablet 40 mg PO QAM Discharge Orders: Discharge Order (Routine); Ordered 02/02/25 Ordered By: Josué Cardoso Admission Data Admit Date/Time: 02/01/25 20:13 Attending Provider: Josué Cardoso Admit Provider: Alberto Juarez Primary Care Provider: Kitty Cano Other Providers: Alberto Juarez; Rock Rivera
[2025-02-02 15:21] VITALS: PULSE 65
--- NOTE | 2025-02-02 19:39 | XCELERA ---
[id number] [id number]
[2025-02-03] MEDS ORDERED: ATORVASTATIN 40 MG TAB PO SCH (09:00)
--- NOTE | 2025-02-04 10:22 | Electrocardiogram Report ---
Test Reason : Blood Pressure : */* mmHG Vent. Rate : 56 BPM Atrial Rate : 56 BPM P-R Int : 188 ms QRS Dur : 86 ms QT Int : 444 ms P-R-T Axes : 47 -8 35 degrees QTcB Int : 428 ms Sinus bradycardia Otherwise normal ECG When compared with ECG of 01-Feb-2025 17:44, (unconfirmed) No significant change was found Confirmed by Brian Carmona ([id number]) on 02/04/2025 10:22:15 AM Referred By: REFERRED SELF Confirmed By: Brian Carmona
== END 2025-02-02 15:36 | disposition home or self-care (01) ==
LOC: 2N 17:31 → ED 17:31 → 2N 22:03